=== PATIENT | female | born 2000 | race Caucasian/White ===

== ENCOUNTER 2023-04-19 09:25 | Inpatient (IN) | payer OTHER, SELFPAY ==
[2023-04-19] VITALS (20 sets, daily range): BP systolic 114–161; BP diastolic 63–92; PULSE 79–120; RESP 13–21; TEMP 36.2–37.2; O2SAT 94–100; BMI 32.0
--- OUTSIDE RECORDS SUMMARY | 2023-04-19 10:04 | XMS RPT_ITS | CCD ---
Author Name Unknown Address [address] [place] [address] Organization [facility] Care Team Providers Care Color Buffer Name Role Phone HORTENSIA PAPPAS Consulting Unavailable BONY WASHINGTON DO Attending Unavailable BONY WASHINGTON DO Primary Care Unavailable BONY AWSHINGTON DO Admitting Unavailable PROVIDER, UNKNOWN Consulting Unavailable FAZAL LARA Attending Unavailable FAZAL LARA Primary Care Unavailable FAZAL LARA Admitting Unavailable HORTENSIA PAPPAS Consulting Unavailable PROVIDER, UNKNOWN Consulting Unavailable Unavailable Primary Care Provider Unavailmaximus TRINH, SIRIA Referring Unavailable CARLOS, PARMJIT Attending Unavailable PLOTTS, JOANNE Attending Unavailable TRINH, SIRIA Referring Unavailable PLOTTS, JOANNE Attending Unavailable TRINH, SIRIA Referring Unavailable CARLOS, KARMON Attending Unavailable PLOTTS, JOANNE Referring Unavailable PLOTTS, JOANNE Attending Unavailable PLOTTS, JOANNE Referring Unavailable WISWELL, AURORA Attending Unavailable CARLOS, KARMON Attending Unavailable PLOTTS, JOANNE Attending Unavailable PLOTTS, JOANNE Attending Unavailable PLOTTS, JOANNE Referring Unavailable TRINH, SIRIA Attending Unavailable TRINH, SIRIA Attending Unavailable TRINH, SIRIA Referring Unavailable TRINH, SIRIA Attending Unavailable TRINH, SIRIA Referring Unavailable Allergies Allergy Classification Reported Allergen(s) Allergy Type Date of Onset Reaction(s) Facility (12 sources) peanut allergenic extract; Translations: [PEANUT] Drug Allergy 08-31-2022 Swelling, Vomiting [facility] Work Phone: Medications Completed/Discontinued Medications Medication Drug Class(es) Dates Sig (Normalized) Sig (Original) 160 actuat EPINEPHrine 0.125 mg/actuat metered dose inhaler (9 sources) alpha-Adrenergic Agonist, beta-Adrenergic Agonist, Catecholamine EPINEPHrine 0.125 mg/actuation HFA Inhale 0.125 g as instructed as needed. 0 Active Problems Active Problems Problem Classification Problem Date Documented Da te Episodic/Chronic Other complications of (1 source) Excessive weight gain in , third trimester; Translations: [Edema or excessive weight gain in , without mention of hypertension, antepartum condition or complication] 04-09-2023 Episodic Other complications of (3 sources) Excessive growth affecting management of mother; Translations: [Maternal care for excessive growth, third trimester, not applicable or unspecified] Onset: 03-15-2023 04-09-2023 Episodic Other lower respiratory disease (5 sources) H/O: asthma; Translations: [Personal history of other diseases of the respiratory system] Onset: 02-05-2023 02-05-2023 Episodic Other and delivery including normal (18 sources) Normal ; Translations: [Encounter for supervision of normal first , unspecified trimester] Onset: 09-18-2022 Episodic Other screening for suspected conditions (not mental disorders or infectious disease) (2 sources) Patient encounter status; Translations: [Encounter for screening for malignant neoplasm of cervix] 09-18-2022 Episodic Residual codes; unclassified (1 source) Gestation period, 7 weeks; Translations: [Less than 8 weeks gestation of ] 09-18-2022 Episodic Residual codes; unclassified (1 source) Gestation period, 11 weeks; Translations: [11 weeks gestation of ] 10-16-2022 Episodic Residual codes; unclassified (2 sources) Gestation period, 19 weeks; Translations: [19 weeks gestation of ] 12-11-2022 Episodic Residual codes; unclassified (1 source) Gestation period, 27 weeks; Translations: [27 weeks gestation of ] 02-05-2023 Episodic Residual codes; unclassified (1 source) Gestation period, 30 weeks; Translations: [30 weeks gestation of ] 02-23-2023 Episodic Residual codes; unclassified (1 source) Gestation period, 36 weeks; Translations: [36 weeks gestation of ] 04-09-2023 Episodic Residual codes; unclassified (1 source) Gestation period, 37 weeks; Translations: [37 weeks gestation of ] 04-16-2023 Episodic Residual codes; unclassified (1 source) 30 weeks gestation of ; Translations: [30 weeks gestation of ] Onset: 03-11-2023 Episodic Residual codes; unclassified (1 source) 23 weeks gestation of ; Translations: [23 weeks gestation of ] Onset: 02-05-2023 Episodic Past or Other Problems Problem Classification Problem Date Documented Da te Episodic/Chronic Other complications of (6 sources) Rubella non-immune; Translations: [Supervision of other high risk pregnancies, unspecified trimester] Onset: 10-19-2022 10-19-2022 Episodic Residual codes; unclassified (1 source) 11 weeks gestation of ; Translations: [11 weeks gestation of ] Onset: 10-16-2022 Episodic Residual codes; unclassified (1 source) Less than 8 weeks gestation of ; Translations: [7 weeks gestation of ] Onset: 10-16-2022 Episodic Results Test Name Value Interpretation Reference Range Facil ity Vital Signs Date Time Vital Sign Value Performing Clinician Elyssa litnguyen 04-16-2023 13:44-0500 Diastolic blood pressure 79 mm[Hg] Parmjit Gonzalez MD Work Phone: [facility] 04-16-2023 13:44-0500 Systolic blood pressure 125 mm[Hg] Parmjit Gonzalez MD Work Phone: [facility] 04-16-2023 13:26-0500 Body weight 111.58 kg Parmjit Gonzalez MD Work Phone: [facility] 04-09-2023 14:35-0500 Body weight 112.49 kg Joanne Miller APRN.CNAlex Work Phone: [facility] 04-09-2023 14:35-0500 Diastolic blood pressure 70 mm[Hg] Joanne Miller CARPET TILE LAYER.CNM Work Phone: [facility] 04-09-2023 14:35-0500 Systolic blood pressure 116 mm[Hg] Joanne Miller CARPET TILE LAYER.CNM Work Phone: [facility] 02-23-2023 15:05-0500 Body weight 102.51 kg Siria Trinh APRN.SHAN Work Phone: [facility] 02-23-2023 15:05-0500 Diastolic blood pressure 72 mm[Hg] Siria Trinh APRN.CNM Work Phone: [facility] 02-23-2023 15:05-0500 Systolic blood pressure 120 mm[Hg] Siria Trinh CARPET TILE LAYER.CNM Work Phone: [facility] 02-05-2023 15:09-0500 Body weight 100.25 kg Siria Trinh CARPET TILE LAYER.CNM Work Phone: [facility] 02-05-2023 15:09-0500 Diastolic blood pressure 82 mm[Hg] Siria Trinh CARPET TILE LAYER.CNM Work Phone: [facility] 02-05-2023 15:09-0500 Systolic blood pressure 124 mm[Hg] Siria Trinh CARPET TILE LAYER.CNM Work Phone: [facility] 12-11-2022 13:45-0400 Body weight 90.63 kg Aurora Prince MD Work Phone: [facility] 12-11-2022 13:45-0400 Diastolic blood pressure 76 mm[Hg] Aurora Prince MD Work Phone: [facility] 12-11-2022 13:45-0400 Systolic blood pressure 120 mm[Hg] Aurora Prince MD Work Phone: [facility] 10-16-2022 15:56-0400 Body weight 81.65 kg Parmjit Gonzalez MD Work Phone: [facility] 10-16-2022 15:56-0400 Diastolic blood pressure 68 mm[Hg] Parmjit Gonzalez MD Work Phone: [facility] 10-16-2022 15:56-0400 Systolic blood pressure 118 mm[Hg] Parmjit Gonzalez MD Work Phone: [facility] 09-18-2022 13:07-0400 Body height 188 cm Joanne Edgekalani CARPET TILE LAYER.CNM Work Phone: [facility] 09-18-2022 13:07-0400 Body weight 80.29 kg Joanne Edgekalani CARPET TILE LAYER.CNM Work Phone: [facility] 09-18-2022 13:07-0400 Diastolic blood pressure 72 mm[Hg] Joanne Plotts CARPET TILE LAYER.CNM Work Phone: [facility] 09-18-2022 13:07-040 Systolic blood pressure 122 mm[Hg] Joanne Miller CARPET TILE LAYER.CNM Work Phone: [facility] Encounters Encounter Date Encounter Type Care Provider Facility Start: 04-16-2023 End: 04-16-2023 ambulatory PARMJIT GONZALEZ Facility:[facility] Start: 04-16-2023 End: 04-16-2023 Patient encounter procedure Parmjit Gonzalez MD Work Phone: OB/Gynecology Procedures Date Procedure Procedure Detail Performing Clinician Start: 04-16-2023 URINE OB DIP B/O Parmjit Gonzalez MD Work Phone: Start: 04-09-2023 URINE OB DIP B/O Petty Miller CARPET TILE LAYER.CNM Work Phone: Start: 02-23-2023 URINE OB DIP B/O Dima Trinh CARPET TILE LAYER.CNM Work Phone: Start: 02-05-2023 URINE OB DIP B/O Dima Trinh CARPET TILE LAYER.CNM Work Phone: Start: 12-11-2022 URINE OB DIP B/O Aurora bryant MD Work Phone: Start: 12-11-2022 Us preg uterus after 1st trimest 1/ gestation Joanne Miller APRN.CNM Work Phone: Start: 10-16-2022 Antibody screen SIRIA TRINH Plan of Treatment Date Care Activity Detail Author Start: 09-18-2025 PAP TESTING PAP TESTING [facility] Start: 09-18-2025 Screening for malign ant neoplasm of cervix Pap Testing [facility] Start: 09-19-2023 CHLAMYDIA SCREENING (18-24) CHLAMYDIA SCREENING (18-24) [facility] Start: 09-19-2023 GC (GONORRHEA) SCREE ESMER (18-24) GC (GONORRHEA) SCREENING (18-24) [facility] Start: 09-19-2023 Screening for Chlamy nj trachomatis Chlamydia Screening (18-) [facility] Start: 03-08-2023 Depression Assessment Depression Ass essment [facility] Start: 03-06-2023 RSV Vaccine (1 - Ris k 1-dose series) RSV Vaccine (1 - Risk 1-dose series) [facility] Start: 11-06-2022 Influenza vaccination [facility] Start: 09-18-2022 End: 11-18-2022 CBC panel - Blood by Automated count CBC Lab Routine Encounter for care in first trimester of first 7 weeks gestation of Expected: 09/18/2022, Expires: 11/18/2022 [facility] Work Phone: Payers Date Payer Category Payer Unknown [employer] P[employer] [id number] 2022-Present [phone] [address] [place] [address] PPO [id number] 2022 Unknown [id number] 2000 Unknown [id number] 2000 Unknown [id number] Unknown [id number] Social History Date Type Detail Facility Start: 08-31-2022 [facility] Work Phone: End: 08-10-2018 History of tobacco use Current smoker [facility] Work Phone: End: 08-10-2018 History of tobacco use Cigarette Smoker [facility] Work Phone: Start: 08-31-2022 Tobacco use and exposure Smokeless tobacco non-user [facility] Work Phone: Start: 08-31-2022 End: 04-16-2023 Alcohol intake Ex-drinker (finding) [facility] Start: 08-31-2022 Education 13 [facility] Start: 08-31-2022 Alcohol Comment 1-2 times a month [facility] Start: 08-08-2022 [facility] Start: 2000 Sex Assigned At Not on file [facility] Start: 09-18-2022 End: 04-16-2023 History of Social function [facility] Start: 09-18-2022 End: 04-16-2023 Tobacco use panel [facility] Goals Date Patient Goal Desired Activity /State Personal health goal Clinical Notes 08-31-2022 to 04-16-2023 Quick Notes - Parmjit Gonzalez MD - 04/16/2023 2:03 PM ESTPatient InstructionsPrenatal Quick Notes - Joanne Miller APRN.CN - 04/09/2023 2:59 PM ESTPatient InstructionsPatient Instructions Note Date & Type Note Facility 04-16-2023 Miscellaneous Notes Formattin g of this note might be different from the original. KJ - VB No. LOF No. CTXS No. Movement: present. Other c/o: No. Medication list reviewed. Physical Exam See Flow Sheet Gen: no accute distress, well appearing Abd: soft, nontender, gravid A/P 37w6d Estimated Date of Delivery: 05/01/23 LGA fetus - discussed R/B/A of MOD. Patient wishes to proceed with elective primary section. Pelvic exam shows inadequate pelvis. Borderline BP - denies preE symptoms. Follow up Wednesday for BP check. Labor precautions reviewed, Kick counts reviewed. Parmjit Gonzalez MD documented in this encounter [facility] 04-16-2023 Instructions Africa Maldonado Ma - 04/16/2023 1:27 PM EST SEQUENTIAL SCREENINGS The [facility] offers sequential screenings for women who are interested in screenings for chromosomal abnormalities and certain defects during a . The sequential screen combines ultrasound and blood tests to determine the risk of chromosomal abnormalities, including Down's Syndrome (Trisomy 21) and Trisomy 18, as well as open neural tube defects including spina bifida. Ultrasound examination is performed between 11 weeks and 13 weeks gestational age. Blood tests are drawn after the ultrasound and again later in the between 15 and 21 weeks gestational age. Please let your physician know if you are interested in this testing. It will require an appointment with our microwave technician. This is not an ultrasound performed by a physician in our office during a routine visit. SIGNS AND SYMPTOMS OF LABOR 1. Contractions every 10 minutes or more often 2. Clear, pink, or brownish fluid (water) leaking from vagina 3. Feeling that baby is pushing down, pressure 4. Low, dull backache 5. Cramps that feel like a period 6. Cramps with or without diarrhea If you notice any of the above symptoms, contact our office at [phone] and ask to speak with a nurse. After hours, you can call doctors registry at [phone] OR call [facility] at [phone] and ask to have the doctor loom control chain builder paged. If you consider this an emergency, dial 4-1 or go to your nearest emergency department. NEED HELP? Are you dealing with a violent or abusive relationship? Are you a victim of rape or sexual assult? Call [facility] ([place]) 24 hour Crisis Hotline: 755.957.4541 or 323-860-4640. MANUAL Your Guide to a Healthy manual is now on-line. Visit [email or web address] to download your free copy documented in this encounter [facility] 04-09-2023 Miscellaneous Notes Formattin g of this note might be different from the original. Waylon Levy is a 23 year old female who presents at 36w6d for a routine visit. Just completed growth US- EFW 96%, EZEKIEL 24. Discussed results with patient and . Would like final growth US in 4 weeks and would like to discuss delivery options. Stated may be open to a primary section due to size of baby. Will discuss after final US. Good movement. Occasional contractions. Reviewed timing of contractions. Denies headache, visual changes, chest pain, shortness of breath, vaginal bleeding, leakage of fluid, or dysuria. Feeling well, no complaints. Size equal to dates. 72 lbs TWG. ASSESSMENT/PLAN: 1. Encounter for supervision of normal first in third trimester - ICD9: V22.0, ICD10: Z34.03 (primary diagnosis) 2. Excessive weight gain in , third trimester - ICD9: 646.13, 783.1, ICD10: O26.03 3. 36 weeks gestation of - ICD9: V22.2, ICD10: Z3A.36 4. Macrosomia of fetus affecting management of mother in third trimester, single or unspecified fetus - ICD9: 656.63, ICD10: O36.63X0 - URINE OB DIP B/O - ROUTINE, GROUP B STREP PCR - EFW 96%, EZEKIEL 24 - PTL precautions reviewed. RTC in 1 week Joanne Miller APRN.CNM documented in this encounter [facility] 04-09-2023 Instructions Waylon Perez Cma - 04/09/2023 2:35 PM EST SEQUENTIAL SCREENINGS The [facility] offers sequential screenings for women who are interested in screenings for chromosomal abnormalities and certain defects during a . The sequential screen combines ultrasound and blood tests to determine the risk of chromosomal abnormalities, including Down's Syndrome (Trisomy 21) and Trisomy 18, as well as open neural tube defects including spina bifida. Ultrasound examination is performed between 11 weeks and 13 weeks gestational age. Blood tests are drawn after the ultrasound and again later in the between 15 and 21 weeks gestational age. Please let your physician know if you are interested in this testing. It will require an appointment with our microwave technician. This is not an ultrasound performed by a physician in our office during a routine visit. SIGNS AND SYMPTOMS OF LABOR 1. Contractions every 10 minutes or more often 2. Clear, pink, or brownish fluid (water) leaking from vagina 3. Feeling that baby is pushing down, pressure 4. Low, dull backache 5. Cramps that feel like a period 6. Cramps with or without diarrhea If you notice any of the above symptoms, contact our office at [phone] and ask to speak with a nurse. After hours, you can call doctors registry at [phone] OR call [facility] at [phone] and ask to have the doctor loom control chain builder paged. If you consider this an emergency, dial 9-1-1 or go to your nearest emergency department. NEED HELP? Are you dealing with a violent or abusive relationship? Are you a victim of rape or sexual assult? Call [facility] ([place]) 24 hour Crisis Hotline: 963.647.1290 or 615-774-4664. MANUAL Your Guide to a Healthy manual is now on-line. Visit [email or web address] to download your free copy documented in this encounter [facility] 02-23-2023 Miscellaneous Notes Formattin g of this note might be different from the original. DONY-S: Waylon Levy is a 22 year old female who presents at 30w3d with KINJAL:05/01/2023, by Last Menstrual Period for a routine visit. Good FM. Denies headache, visual changes, chest pain, shortness of breath, vaginal bleeding, leakage of fluid, or dysuria. Feeling well, no complaints. O: See flow sheet Gen: No apparent distress Abd: Gravid, nontender ASSESSMENT/PLAN: 1. Encounter for supervision of normal first in third trimester 2. 30 weeks gestation of P: 1) PTL precautions reviewed and when to call 2) RTO in 2 weeks 3) Growth US next visit for excessive weight gain, 50 lb 4) RSV vaccine, discusses, declines. 5) Reveiwed plan will possible want epidural or IV pain management. 6) Reviewed 1hr GCT and CBC, normal. Siria Trinh APRN.CNM documented in this encounter [facility] 02-23-2023 Instructions Waylon Perez Cma - 02/23/2023 3:05 PM EST SEQUENTIAL SCREENINGS The [facility] offers sequential screenings for women who are interested in screenings for chromosomal abnormalities and certain defects during a . The sequential screen combines ultrasound and blood tests to determine the risk of chromosomal abnormalities, including Down's Syndrome (Trisomy 21) and Trisomy 18, as well as open neural tube defects including spina bifida. Ultrasound examination is performed between 11 weeks and 13 weeks gestational age. Blood tests are drawn after the ultrasound and again later in the between 15 and 21 weeks gestational age. Please let your physician know if you are interested in this testing. It will require an appointment with our microwave technician. This is not an ultrasound performed by a physician in our office during a routine visit. SIGNS AND SYMPTOMS OF LABOR 1. Contractions every 10 minutes or more often 2. Clear, pink, or brownish fluid (water) leaking from vagina 3. Feeling that baby is pushing down, pressure 4. Low, dull backache 5. Cramps that feel like a period 6. Cramps with or without diarrhea If you notice any of the above symptoms, contact our office at [phone] and ask to speak with a nurse. After hours, you can call doctors registry at [phone] OR call [facility] at [phone] and ask to have the doctor loom control chain builder paged. If you consider this an emergency, dial 5-0-1 or go to your nearest emergency department. NEED HELP? Are you dealing with a violent or abusive relationship? Are you a victim of rape or sexual assult? Call [facility] ([place]) 24 hour Crisis Hotline: 594.378.8157 or 579-509-1579. MANUAL Your Guide to a Healthy manual is now on-line. Visit [email or web address] to download your free copy documented in this encounter [facility] 02-05-2023 Miscellaneous Notes Formattin g of this note might be different from the original. DONY-S: Waylon Levy is a 22 year old female who presents at 27w6d with KINJAL:05/01/2023, by Last Menstrual Period for a routine visit. Denies headache, visual changes, chest pain, shortness of breath, vaginal bleeding, leakage of fluid, or dysuria. Feeling well, no complaints. Has not had episode of Asthma since first trimester, will bring inhaler with her in labor O: See flow sheet Gen: No apparent distress Abd: Gravid, nontender S=D, TWG 45 lb ASSESSMENT/PLAN: 1. 27 weeks gestation of 2. Encounter for supervision of normal first in third trimester P: - 1 hour GCT, CBC, and RPR today - Blood Type O+ - TDAP offered, declined - LARC form reviewed and signed. Patient declines -Handout re: RSV vaccine given for review-will offer at 32 wk - Depression screen negative - Opioid screen negative -Discussed healthy food choices and increase water intake - plan form discussed and given to patient. 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 I have re-performed the HPI, Physical Examination, Assessment and Plan. Siria Trinh APRN.CNM documented in this encounter [facility] 02-05-2023 Instructions Melanie Lind Ma 02/05/2023 3:07 PM EST SEQUENTIAL SCREENINGS The [facility] offers sequential screenings for women who are interested in screenings for chromosomal abnormalities and certain defects during a . The sequential screen combines ultrasound and blood tests to determine the risk of chromosomal abnormalities, including Down's Syndrome (Trisomy 21) and Trisomy 18, as well as open neural tube defects including spina bifida. Ultrasound examination is performed between 11 weeks and 13 weeks gestational age. Blood tests are drawn after the ultrasound and again later in the between 15 and 21 weeks gestational age. Please let your physician know if you are interested in this testing. It will require an appointment with our microwave technician. This is not an ultrasound performed by a physician in our office during a routine visit. SIGNS AND SYMPTOMS OF LABOR 1. Contractions every 10 minutes or more often 2. Clear, pink, or brownish fluid (water) leaking from vagina 3. Feeling that baby is pushing down, pressure 4. Low, dull backache 5. Cramps that feel like a period 6. Cramps with or without diarrhea If you notice any of the above symptoms, contact our office at [phone] and ask to speak with a nurse. After hours, you can call doctors registry at [phone] OR call [facility] at [phone] and ask to have the doctor loom control chain builder paged. If you consider this an emergency, dial 9-1-1 or go to your nearest emergency department. NEED HELP? Are you dealing with a violent or abusive relationship? Are you a victim of rape or sexual assult? Call [facility] ([place]) 24 hour Crisis Hotline: 947.801.4523 or 205-424-3320. MANUAL Your Guide to a Healthy manual is now on-line. Visit [email or web address] to download your free copy documented in this encounter [facility] 12-11-2022 Miscellaneous Notes Formattin g of this note might be different from the original. SW- No pain, vb, lof. No FM yet. Anatomy US today and final report reviewed. RTO 4 wks. Aurora Prince DO documented in this encounter [facility] 12-11-2022 Instructions Rosa Aguilar MA - 12/11/2022 1:36 PM EDT SEQUENTIAL SCREENINGS The [facility] offers sequential screenings for women who are interested in screenings for chromosomal abnormalities and certain defects during a . The sequential screen combines ultrasound and blood tests to determine the risk of chromosomal abnormalities, including Down's Syndrome (Trisomy 21) and Trisomy 18, as well as open neural tube defects including spina bifida. Ultrasound examination is performed between 11 weeks and 13 weeks gestational age. Blood tests are drawn after the ultrasound and again later in the between 15 and 21 weeks gestational age. Please let your physician know if you are interested in this testing. It will require an appointment with our microwave technician. This is not an ultrasound performed by a physician in our office during a routine visit. SIGNS AND SYMPTOMS OF LABOR 1. Contractions every 10 minutes or more often 2. Clear, pink, or brownish fluid (water) leaking from vagina 3. Feeling that baby is pushing down, pressure 4. Low, dull backache 5. Cramps that feel like a period 6. Cramps with or without diarrhea If you notice any of the above symptoms, contact our office at [phone] and ask to speak with a nurse. After hours, you can call doctors registry at [phone] OR call [facility] at [phone] and ask to have the doctor loom control chain builder paged. If you consider this an emergency, dial 2-4-9 or go to your nearest emergency department. NEED HELP? Are you dealing with a violent or abusive relationship? Are you a victim of rape or sexual assult? Call [facility] ([place]) 24 hour Crisis Hotline: 744.947.6600 or 162-472-6691. MANUAL Your Guide to a Healthy manual is now on-line. Visit [email or web address] to download your free copy documented in this encounter [facility] 10-16-2022 Miscellaneous Notes Formattin g of this note might be different from the original. KJ - No VB/LOF/ctxs. She reports a red rash under her breasts. PE: Breast - circumscribed erythema under bilateral breasts A&P: Declines aneuploidy screening Skin erythema - suspect yeast &/or irritant dermatitis. Rx kenalog & nystatin ointments given. Advised on avoid underwire bras. Parmjit Gonzalez MD documented in this encounter [facility] 10-16-2022 Instructions Aurora Beatty RN - 10/16/2022 8:47 AM EDT SEQUENTIAL SCREENINGS The [facility] offers sequential screenings for women who are interested in screenings for chromosomal abnormalities and certain defects during a . The sequential screen combines ultrasound and blood tests to determine the risk of chromosomal abnormalities, including Down's Syndrome (Trisomy 21) and Trisomy 18, as well as open neural tube defects including spina bifida. Ultrasound examination is performed between 11 weeks and 13 weeks gestational age. Blood tests are drawn after the ultrasound and again later in the between 15 and 21 weeks gestational age. Please let your physician know if you are interested in this testing. It will require an appointment with our microwave technician. This is not an ultrasound performed by a physician in our office during a routine visit. SIGNS AND SYMPTOMS OF LABOR 1. Contractions every 10 minutes or more often 2. Clear, pink, or brownish fluid (water) leaking from vagina 3. Feeling that baby is pushing down, pressure 4. Low, dull backache 5. Cramps that feel like a period 6. Cramps with or without diarrhea If you notice any of the above symptoms, contact our office at [phone] and ask to speak with a nurse. After hours, you can call doctors registry at [phone] OR call [facility] at [phone] and ask to have the doctor loom control chain builder paged. If you consider this an emergency, dial 9-3 or go to your nearest emergency department. NEED HELP? Are you dealing with a violent or abusive relationship? Are you a victim of rape or sexual assult? Call [facility] ([place]) 24 hour Crisis Hotline: 490.643.6605 or 940-746-6317. MANUAL Your Guide to a Healthy manual is now on-line. Visit [email or web address] to download your free copy documented in this encounter [facility] 09-18-2022 Note HNO ID: [id number] Author: Joanne Miller APRN.CNM Service: ? Author Type: Qc Scientist Type: Progress Notes Filed: 09/18/2022 2:09 PM Note Text: OB point of care ultrasound was performed. See imaging tab for details. Joanne Miller APRN.CNM [facility] 09-18-2022 Note HNO ID: [id number] Author: Joanne Miller APRN.CNM Service: ? Author Type: Qc Scientist Type: Progress Notes Filed: 09/18/2022 1:45 PM Note Text: INITIAL OB ASSESSMENT OB Provider: Joanne Miller APRN CNM HPI: Waylon is a 22 year old White here to establish Obstetrical Care. Patient's last menstrual period was 07/25/2022 (exact date). from OB Dating Form. Cycles regular was planned Complaints: None OB History T0 L0 SAB0 IAB0 Ectopic0 Multiple0 Live Births0 Patient's Risk Screening for delivery: Have you had a prior ho between 20w and 36w6d?: No MEDICAL/PSYCHOSOCIAL HISTORY: History of hemorrhage or bleeding concerns: No Thyroid Disease: No History of chronic hypertension: No History of pre-existing diabetes: No No results found for: ABORHD BMI 22.73 kg/(m2) History of abnormal pap: No Prior treatment for cervical dysplasia: none. History of STDs: None Tobacco use: No Caffeine use: No Drug use: No Alcohol use: No Multivitamin with Folic acid: Yes Episcopalian or heritage: No Would refuse blood transfusion if medically necessary: No Are you currently employed? Yes, Occupation: [employer] Do you have any history of depression, anxiety, PTSD, eating disorders or other mood problems: No Do you have any safety concerns or history of traumatic events that you would like to discuss with your provider: No How often does this describe you? I don't have enough money to pay my bills: Never Within the past 12 months, have you worried that your food would run out before you had money to buy more: Never In the past 12 months, has lack of reliable transportation kept you from going to medical appointments or work, or from keeping things needed for daily living: Never In the past 12 months, have you had any concerns about having a place to live, or about the condition or quality of your housing: Never Are there any cultural or spiritual needs we should be aware of: No Depression: denies symptoms of depression. OB Depression and Anxiety Screening- This Encounter (since 09/17/2022) Over the past 2 weeks have you felt down, depressed, or hopeless? Negative Over the past two weeks, have you felt little interest or pleasure in doing things?? Negative Feeling nervous, anxious or on edge 1-Several days Not being able to stop or control worrying 0-Not al all Anxiety Pre-Screening Total (If >/= 3 additional questions will be reviewed) 1 GENETIC SCREENING: Partner present: Yes Patient verbalized knowledge of partner family health history: Yes Do you or your partner have any personal or family history of defects not previously discussed: No Do you have history of a complicated by anomaly, genetic condition, or demise: No Marital Status:Engaged Partner: Name: Luigi Age: 21 Occupation: [employer] Gender: Male History of STDs: None PAST MEDICAL HISTORY Diagnosis Date Asthma Uses OTC inhaler-no major asthma attacks in 10 years per patient No past surgical history on file. Current Outpatient Medications Medication Sig Dispense Refill EPINEPHrine 0.125 mg/actuation HFA Inhale 0.125 g as instructed as needed. multivitamin (CLASSIC ) 28 mg iron- 800 mcg tab(s) Take 1 tablet by mouth once daily. DHA and Folic acid included No current facility-administered medications for this visit. Allergies As of Date: 09/18/2022 Allergen Noted Reaction PEANUT 08/31/2022 Swelling and Vomiting Fully Assessed 09/18/2022 Does patient have penicillin allergy: No REVIEW OF SYSTEMS: GENERAL: Negative for: Fever or Chills and Positive for: Fatigue HEENT: Negative for: Headache, Impaired Vision, Ringing in Ears, Nosebleeds NECK: Negative for: Swelling, Pain, Stiffness RESPIRATORY: Negative for: Cough, Shortness of breath, Wheezing GASTROINTESTINAL: Negative for: Heartburn, Constipation, Diarrhea, Blood in stool, Vomiting MUSCULOSKELETAL: Negative for: Muscle or joint pain, stiffness, Joint swelling NEUROLOGIC/PSYCHIATRIC: Negative for: Weakness, Paralysis, Numbness, Tingling, Tremor, Anxiety, Depression, Memory loss SKIN: Negative for: Rash, Itching GENITOURINARY: Negative for: vaginal itching, vaginal discharge, hematuria or dysuria and Positive for: urinary frequency PHYSICAL EXAM: BP 122/72 Ht 6' 2 (1.88m) Wt 177 lb (80.3kg) LMP 07/25/2022 BMI 22.72 kg/(m2). GENERAL: pleasant in no apparent distress DERMATOLOGY: Normal, without lesions, non-icteric, and non-hirsute NECK: Supple and full range of motion CHEST: Normal inspiratory effort BREAST: soft, non-tender, symmetric, no dominant mass, normal nipple-areolar complex, no lymphadenopathy, and no nipple discharge ABDOMEN: soft, non-tender, and no masses NEURO: alert and oriented x3,exam grossly non-focal PELVIS: External gen (more content not included)... [facility] 09-18-2022 History of Presen t illness Narrative OB point of care ultrasound was performed. See imaging tab for details. Joanne Miller APRN.BHASKARM documented in this encounter [facility] 09-18-2022 Miscellaneous Notes Formattin g of this note might be different from the original. Patient seen for NOB. See progress note. Joanne Miller APRN.CNM documented in this encounter [facility] 09-18-2022 History of Presen t illness Narrative INITIAL OB ASSESSMENT OB Provider: Joanne Miller APRN CNM HPI: Waylon is a 22 year old White here to establish Obstetrical Care. Patient's last menstrual period was 07/25/2022 (exact date). from OB Dating Form. Cycles regular was planned Complaints: None OB History T0 L0 SAB0 IAB0 Ectopic0 Multiple0 Live Births0 Patient's Risk Screening for delivery: Have you had a prior ho between 20w and 36w6d?: No MEDICAL/PSYCHOSOCIAL HISTORY: History of hemorrhage or bleeding concerns: No Thyroid Disease: No History of chronic hypertension: No History of pre-existing diabetes: No No results found for: ABORHD BMI 22.73 kg/(m^2) History of abnormal pap: No Prior treatment for cervical dysplasia: none. History of STDs: None Tobacco use: No Caffeine use: No Drug use: No Alcohol use: No Multivitamin with Folic acid: Yes Episcopalian or heritage: No Would refuse blood transfusion if medically necessary: No Are you currently employed? Yes, Occupation: [employer] Do you have any history of depression, anxiety, PTSD, eating disorders or other mood problems: No Do you have any safety concerns or history of traumatic events that you would like to discuss with your provider: No How often does this describe you? I don't have enough money to pay my bills: Never Within the past 12 months, have you worried that your food would run out before you had money to buy more: Never In the past 12 months, has lack of reliable transportation kept you from going to medical appointments or work, or from keeping things needed for daily living: Never In the past 12 months, have you had any concerns about having a place to live, or about the condition or quality of your housing: Never Are there any cultural or spiritual needs we should be aware of: No Depression: denies symptoms of depression. OB Depression and Anxiety Screening- This Encounter (since 09/17/2022) Over the past 2 weeks have you felt down, depressed, or hopeless? Negative Over the past two weeks, have you felt little interest or pleasure in doing things? Negative Feeling nervous, anxious or on edge 1-Several days Not being able to stop or control worrying 0-Not al all Anxiety Pre-Screening Total (If >/= 3 additional questions will be reviewed) 1 GENETIC SCREENING: Partner present: Yes Patient verbalized knowledge of partner family health history: Yes Do you or your partner have any personal or family history of defects not previously discussed: No Do you have history of a complicated by anomaly, genetic condition, or demise: No Marital Status:Engaged Partner: Name: Luigi Age: 21 Occupation: Excavating Gender: Male History of STDs: None PAST MEDICAL HISTORY Diagnosis Date Asthma Uses OTC inhaler-no major asthma attacks in 10 years per patient No past surgical history on file. Current Outpatient Medications Medication Sig Dispense Refill EPINEPHrine 0.125 mg/actuation HFA Inhale 0.125 g as instructed as needed. multivitamin (CLASSIC ) 28 mg iron- 800 mcg tab(s) Take 1 tablet by mouth once daily. DHA and Folic acid included No current facility-administered medications for this visit. Allergies As of Date: 09/18/2022 Allergen Noted Reaction PEANUT 08/31/2022 Swelling and Vomiting Fully Assessed 09/18/2022 Does patient have penicillin allergy: No REVIEW OF SYSTEMS: GENERAL: Negative for: Fever or Chills and Positive for: Fatigue HEENT: Negative for: Headache, Impaired Vision, Ringing in Ears, Nosebleeds NECK: Negative for: Swelling, Pain, Stiffness RESPIRATORY: Negative for: Cough, Shortness of breath, Wheezing GASTROINTESTINAL: Negative for: Heartburn, Constipation, Diarrhea, Blood in stool, Vomiting MUSCULOSKELETAL: Negative for: Muscle or joint pain, stiffness, Joint swelling NEUROLOGIC/PSYCHIATRIC: Negative for: Weakness, Paralysis, Numbness, Tingling, Tremor, Anxiety, Depression, Memory loss SKIN: Negative for: Rash, Itching GENITOURINARY: Negative for: vaginal itching, vaginal discharge, hematuria or dysuria and Positive for: urinary frequency PHYSICAL EXAM: BP 122/72 Ht 6' 2 (1.88m) Wt 177 lb (80.3kg) LMP 07/25/2022 BMI 22.72 kg/(m^2). GENERAL: pleasant in no apparent distress DERMATOLOGY: Normal, without lesions, non-icteric, and non-hirsute NECK: Supple and full range of motion CHEST: Normal inspiratory effort BREAST: soft, non-tender, symmetric, no dominant mass, normal nipple-areolar complex, no lymphadenopathy, and no nipple discharge ABDOMEN: soft, non-tender, and no masses NEURO: alert and oriented x3,exam grossly non-focal PELVIS: External genitalia normal without lesions. Perineal body intact. No vaginal or cervical lesions. Cervix closed. Uterus 7 week size. No adnexal masses or tenderness. Clinical Pelvimetry: Pelvimetry clinically assessed as adequate Limited OB ultrasound exam: single intrauterine , positive cardiac activity, and crown-rump length 7.3 OB Risk Screening: Completed, no positive findings documented. ASSESSMENT: 22 year old at 7w6d wks gestational age PLAN: 1) Patient oriented to practice. Discussed nutrition, folic acid supplementation, dietary guidelines, exercise, smoking, alcohol, caffeine, and drug use. Discussed routine OB labs including STD/HIV. Discussed how to access Your guide to a health and the Suction Drum Drier Operator. Discussed aneuploidy and carrier screening. Regarding aneuploidy screening, nuchal translucency/first trimester early anatomy ultrasound and NIPT were discussed. Regarding carrier screening, the myriad screen was discussed. The risks/benefits and limitations of NIPT/aneuploidy screening were reviewed including the potential for false negative and false positive results. We discussed the availability of professional-society guided carrier screening and reviewed the conditions screened and limitations of screening. The availability of genetic counseling was reviewed. Information on aneuploidy/carrier screening was provided. The patient chooses: Aneuploidy screening: declines screening and Carrier screening: Declines Follow up in 4 weeks or sooner prn. Joanen Miller APRN.CNM documented in this encounter [facility] 09-18-2022 Waylon Gupta Cma - 09/18/2022 12:52 PM EDT Please select the following link to access the [facility] Your Guide to a Healthy . [email or web address] documented in this encounter [facility] 08-31-2022 Miscellaneous Notes Formattin g of this note might be different from the original. 08/31/2022 Patient here with father of the baby. They are engaged to be . Entire visit was done with [facility]. Patient desires aneuploidy screening. Contact information for [facility] given to patient to check on insurance coverage. Patient considering genetic carrier screening testing. Contact information for [facility] lab given to patient to check on insurance coverage.Sarahy Faria RN documented in this encounter [facility] Diagnosis Encounter for care in first trimester of first - Primary 7 weeks gestation of state, incidental Pap smear for cervical cancer screening Screening for malignant neoplasm of the cervix [facility]* Diagnosis with uncertain dates in first trimester- Primary [facility] Diagnosis 11 weeks gestation of - Primary state, incidental Supervision of normal first , antepartum [facility] Diagnosis 19 weeks gestation of - Primary state, incidental Encounter for care in second trimester of first [facility] Diagnosis Encounter for anatomic survey- Primary Encounter for care in first trimester of first 19 weeks gestation of state, incidental [facility] Diagnosis 27 weeks gestation of - Primary state, incidental Encounter for supervision of normal first in second trimester Supervision of normal first History of asthma Personal history of other diseases of respiratory system Encounter for supervision of normal first in third trimester Supervision of normal first [facility] Diagnosis Encounter for supervision of normal first in third trimester- Primary Supervision of normal first 30 weeks gestation of state, incidental [facility] Diagnosis Encounter for supervision of normal first in third trimester- Primary Supervision of normal first Excessive weight gain in , third trimester 36 weeks gestation of state, incidental Macrosomia of fetus affecting management of mother in third trimester, single or unspecified fetus [facility] Diagnosis 37 weeks gestation of - Primary state, incidental documented in this encounter [facility] for referral (narrative)* Diagnostic Procedure Only (Routine) - Pending Review Specialty Diagnoses / Procedures Referred By Maureen gamble Referred To Contact [facility] Diagnoses Encounter for care in first trimester of first 7 weeks gestation of Procedures OBSTETRIC ULTRASOUND WHI US PREG UTERUS AFTER 1ST TRIMEST 1/ GESTATION Joanne Miller APRN.CNM [address] [place] [address] [facility] [place] [address] Referral ID Status Reason Start Date Expiration Date Visits Requested Visits Authorized [id number] Pending Review Auto-Generat ed Referral 09/18/2022 09/18/2023 1 1 [facility] for referral (narrative)* Diagnostic Procedure Only (Routine) - Authorized Specialty Diagnoses / Procedures Referred By Maureen gamble Referred To [facility] Diagnoses 30 weeks gestation of Procedures OBSTETRIC ULTRASOUND WHI US PREG UTERUS AFTER 1ST TRIMEST GESTATION Siria Trinh APRN.CNM [address] [place] [address] [facility] [address] [place] [address] Referral ID Status Reason Start Date Expiration Date Visits Requested Visits Authorized [id number] Authorized Auto-Generat ed Referral 3 02/23/2024 5 1 [facility] Summary Purpose Family History No Family History Records FoundNo Family History Records FoundNo Family History Records Found Advance Directives No Advanced Directives Records FoundNo Advanced Directives Records FoundNo Advanced Directives Records Found Health Concerns Problem Noted Date Diagnosed Date [facility] - [facility] 09/18/2022 Education - [place] 09/18/2022 Problem Noted Date Diagnosed Date [facility] - [facility] 09/18/2022 Education - [place] 09/18/2022 Problem Noted Date Diagnosed Date [facility] - [facility] 09/18/2022 Education - [place] 09/18/2022 Problem Noted Date Diagnosed Date [facility] - [facility] 09/18/2022 Education - [place] 09/18/2022 Problem Noted Date Diagnosed Date [facility] - [facility] 09/18/2022 Education - [place] 09/18/2022 Problem Noted Date Diagnosed Date [facility] - [facility] 09/18/2022 Education - [place] 09/18/2022 Problem Noted Date Diagnosed Date [facility] - [facility] 09/18/2022 Education - [place] 09/18/2022 Problem Noted Date Diagnosed Date [facility] - [facility] 09/18/2022 Education - [place] 09/18/2022 Additional Source Comments INFORMATION SOURCE (unrecogn ized section and content) DATE CREATED AUTHOR AUTHOR'S ORGANIZ ATION 02/04/2020 [facility] DATE CREATED AUTHOR AUTHOR'S ORGANIZ ATION 04/18/2023 [facility] Source Comments (unrecognize d section and content) In the event this informatio n is protected by the Federal Confidentiality of Alcohol and Drug Abuse Patient Records regulations: The Federal rules restrict any use of the information to criminally investigate or prosecute any alcohol or drug abuse patient.[facility] the event this information is protected by the Federal Confidentiality of Alcohol and Drug Abuse Patient Records regulations: The Federal rules restrict any use of the information to criminally investigate or prosecute any alcohol or drug abuse patient.[facility] the event this information is protected by the Federal Confidentiality of Alcohol and Drug Abuse Patient Records regulations: The Federal rules restrict any use of the information to criminally investigate or prosecute any alcohol or drug abuse patient.[facility] the event this information is protected by the Federal Confidentiality of Alcohol and Drug Abuse Patient Records regulations: The Federal rules restrict any use of the information to criminally investigate or prosecute any alcohol or drug abuse patient.[facility] the event this information is protected by the Federal Confidentiality of Alcohol and Drug Abuse Patient Records regulations: The Federal rules restrict any use of the information to criminally investigate or prosecute any alcohol or drug abuse patient.[facility] the event this information is protected by the Federal Confidentiality of Alcohol and Drug Abuse Patient Records regulations: The Federal rules restrict any use of the information to criminally investigate or prosecute any alcohol or drug abuse patient.[facility] the event this information is protected by the Federal Confidentiality of Alcohol and Drug Abuse Patient Records regulations: The Federal rules restrict any use of the information to criminally investigate or prosecute any alcohol or drug abuse patient.[facility] the event this information is protected by the Federal Confidentiality of Alcohol and Drug Abuse Patient Records regulations: The Federal rules restrict any use of the information to criminally investigate or prosecute any alcohol or drug abuse patient.[facility] the event this information is protected by the Federal Confidentiality of Alcohol and Drug Abuse Patient Records regulations: The Federal rules restrict any use of the information to criminally investigate or prosecute any alcohol or drug abuse patient.[facility] the event this information is protected by the Federal Confidentiality of Alcohol and Drug Abuse Patient Records regulations: The Federal rules restrict any use of the information to criminally investigate or prosecute any alcohol or drug abuse patient.[facility] the event this information is protected by the Federal Confidentiality of Alcohol and Drug Abuse Patient Records regulations: The Federal rules restrict any use of the information to criminally investigate or prosecute any alcohol or drug abuse patient.[facility] Reason for Visit (unrecogniz ed section and content) Specialty Diagnoses / Procedures Referred By Contac t Referred To Contact [employer] Diagnoses Follow-up examination PNOB Procedures OFFICE/OUTPATIENT ESTABLISHED MOD MDM 30-39 MIN [facility] NURSE Self Beac, Injection Nurse Conference Center Coordinator [facility] [address] [place] [address] Referral ID Status Reason Start Date Expiration Date Visits Re quested Visits Authorized [id number] Closed 08/31/2022 03/07/2023 1 1 Specialty Diagnoses / Procedures Referred By Contac t Referred To Contact [employer] Diagnoses Follow-up exam New OB Procedures OFFICE/OUTPATIENT NEW HIGH MDM 60-74 MINUTES NEW I OB 1ST EXAM Self Joanne Miller APRN.CNM [address] [place] [address] Referral ID Status Reason Start Date Expiration Date Visits Re quested Visits Authorized [id number] Closed 09/18/2022 03/07/2023 1 1 Specialty Diagnoses / Procedures Referred By Contac t Referred To Contact [employer] Diagnoses READ Procedures US PREG UTERUS AFTER 1ST TRIMEST GESTATION OB ULTRASOUND POC Joanne Miller APRN.CNM [address] [place] [address] Joanne Miller APRN.BHASKARM [address] [place] [address] Referral ID Status Reason Start Date Expiration Date Visits Re quested Visits Authorized [id number] Closed 09/18/2022 03/07/2023 1 1 Reason Onset Date Comments Care 10/16/2022 Specialty Diagnoses / Procedures Referred By Contac t Referred To Contact [employer] Diagnoses Encounter for other specified special examinations ob Procedures OFFICE/OUTPATIENT ESTABLISHED MOD MDM 30-39 MIN EST WHI OB Self Parmjit Gonzalez MD [address] [place] [address] Referral ID Status Reason Start Date Expiration Date Visits Re quested Visits Authorized [id number] Closed 10/16/2022 03/07/2023 1 1 Reason Onset Date Comments Care 12/11/2022 Specialty Diagnoses / Procedures Referred By Contac t Referred To Contact [employer] Diagnoses Follow-up examination ob Procedures OFFICE/OUTPATIENT ESTABLISHED HIGH MDM 40-54 MIN EST WHI OB Self Aurora Prince MD [address] [place] [address] Referral ID Status Reason Start Date Expiration Date Visits Re quested Visits Authorized [id number] Closed 12/11/2022 03/07/2023 1 1 Reason Comments US Specialty Diagnoses / Procedures Referred By Contac t Referred To Contact [facility] Diagnoses Encounter for care in first trimester of first 7 weeks gestation of Procedures OBSTETRIC ULTRASOUND WHI US PREG UTERUS AFTER 1ST TRIMEST GESTATION Joanne Miller APRN.SHAN [address] [place] [address] [facility] [address] [place] [address] Referral ID Status Reason Start Date Expiration Date Visits Requested Visits Authorized [id number] Authorized Auto-Generat ed Referral 11/25/2022 03/07/2023 20 20 Reason Onset Date Comments Care 02/05/2023 Reason Onset Date Comments Care 02/23/2023 Reason Onset Date Comments Care 04/09/2023 Reason Onset Date Comments Care 04/16/2023 FOR RECORDS PERTAINING TO PATIENTS WHO ARE OR HAVE BEEN ENROLLED IN A CHEMICAL DEPENDENCY/SUBSTANCEABUSE PROGRAM, SOME INFORMATION MAY BE OMITTED. This clinical summary was aggregated from multiple sources. Caution should be exercised in using it in the provision of clinical care. This summary normalizes information from multiple sources, and as a consequence, information in this document may materially change the coding, format and clinical context of patient data. In addition, data may be omitted in some cases. CLINICAL DECISIONS SHOULD BE BASED ON THE PRIMARY CLINICAL RECORDS. [facility] [employer] provides no warranty or guarantee of the accuracy or completeness of information in this document.
[2023-04-19] MEDS: Lactated Ringers 1,000 ML 999 ML IV (10:05)
--- OUTSIDE RECORDS SUMMARY | 2023-04-19 10:06 | XMS RPT_ITS | CCD ---
Author Name Unknown Address [address] [place] [address] Organization [facility] Care Team Providers Care Mental Health Program Manager Name Role Phone HORTENSIA PAPPAS Consulting Unavailable BONY WASHINGTON DO Attending Unavailable BONY WASHINGTON DO Primary Care Unavailable BONY WASHINGTON DO Admitting Unavailable PROVIDER, UNKNOWN Consulting Unavailable [...] Translations: [PEANUT] Drug Allergy 08-31-2022 Swelling, Vomiting [facility] Work Phone: Medications Completed/Discontinued Medications Medication [...] 79 mm[Hg] Parmjit Gonzalez MD Work Phone: [facility] 04-16-2023 13:44-0500 Systolic blood pressure 125 mm[Hg] Parmjit Gonzalez MD Work Phone: [facility] 04-16-2023 13:26-0500 Body weight 111.58 kg Parmjit Gonzalez MD Work Phone: [facility] 04-09-2023 14:35-0500 Body weight 112.49 kg Joanne Miller APRN.CNAlex Work Phone: [facility] 04-09-2023 14:35-0500 Diastolic blood pressure 70 mm[Hg] Joanne Miller NAPPER TENDER.CNM Work Phone: [facility] 04-09-2023 14:35-0500 Systolic blood pressure 116 mm[Hg] Joanne Miller NAPPER TENDER.CNM Work Phone: [facility] 02-23-2023 15:05-0500 Body weight 102.51 kg Siria Trinh APRN.SHAN Work Phone: [facility] 02-23-2023 15:05-0500 Diastolic blood pressure 72 mm[Hg] Siria Trinh APRN.CNM Work Phone: [facility] 02-23-2023 15:05-0500 Systolic blood pressure 120 mm[Hg] Siria Trinh NAPPER TENDER.CNM Work Phone: [facility] 02-05-2023 15:09-0500 Body weight 100.25 kg Siria Trinh NAPPER TENDER.CNM Work Phone: [facility] 02-05-2023 15:09-0500 Diastolic blood pressure 82 mm[Hg] Siria Trinh NAPPER TENDER.CNM Work Phone: [facility] 02-05-2023 15:09-0500 Systolic blood pressure 124 mm[Hg] Siria Trinh NAPPER TENDER.CNM Work Phone: [facility] 12-11-2022 13:45-0400 Body weight 90.63 kg Aurora Prince MD Work Phone: [facility] 12-11-2022 13:45-0400 Diastolic blood pressure 76 mm[Hg] Aurora Prince MD Work Phone: [facility] 12-11-2022 13:45-0400 Systolic blood pressure 120 mm[Hg] Aurora Prince MD Work Phone: [facility] 10-16-2022 15:56-0400 Body weight 81.65 kg Parmjit Gonzalez MD Work Phone: [facility] 10-16-2022 15:56-0400 Diastolic blood pressure 68 mm[Hg] Parmjit Gonzalez MD Work Phone: [facility] 10-16-2022 15:56-0400 Systolic blood pressure 118 mm[Hg] Parmjit Gonzalez MD Work Phone: [facility] 09-18-2022 13:07-0400 Body height 188 cm Joanne Edgekalani NAPPER TENDER.CNM Work Phone: [facility] 09-18-2022 13:07-0400 Body weight 80.29 kg Joanne Edgekalani NAPPER TENDER.CNM Work Phone: [facility] 09-18-2022 13:07-0400 Diastolic blood pressure 72 mm[Hg] Joanne Plotts NAPPER TENDER.CNM Work Phone: [facility] 09-18-2022 13:07-040 Systolic blood pressure 122 mm[Hg] Joanne Miller NAPPER TENDER.CNM Work Phone: [facility] Encounters Encounter Date Encounter Type Care Provider Facility Start: 04-16-2023 End: 04-16-2023 ambulatory PARMJIT GONZALEZ Facility:[facility] Start: 04-16-2023 End: 04-16-2023 Patient encounter procedure Parmjit Gonzalez MD Work Phone: OB/Gynecology Procedures Date Procedure Procedure Detail Performing Clinician Start: 04-16-2023 URINE OB DIP B/O Parmjit Gonzalez MD Work Phone: Start: 04-09-2023 URINE OB DIP B/O Petty Miller NAPPER TENDER.CNM Work Phone: Start: 02-23-2023 URINE OB DIP B/O Dima Trinh NAPPER TENDER.CNM Work Phone: Start: 02-05-2023 URINE OB DIP B/O Dima Trinh NAPPER TENDER.CNM Work Phone: Start: 12-11-2022 URINE OB DIP B/O Auroar bryant MD Work Phone: Start: 12-11-2022 Us preg uterus after 1st trimest 1/ gestation Joanne Miller APRN.CNM Work Phone: Start: 10-16-2022 Antibody screen SIRIA TRINH Plan of Treatment Date Care Activity Detail Author Start: 09-18-2025 PAP TESTING PAP TESTING [facility] Start: 09-18-2025 Screening for malign ant neoplasm of cervix Pap Testing [facility] Start: 09-19-2023 CHLAMYDIA SCREENING (18-24) CHLAMYDIA SCREENING (18-24) [facility] Start: 09-19-2023 GC (GONORRHEA) SCREE ESMER (18-24) GC (GONORRHEA) SCREENING (18-24) [facility] Start: 09-19-2023 Screening for Chlamy nj trachomatis Chlamydia Screening (18-) [facility] Start: 03-08-2023 Depression Assessment Depression Ass essment [facility] Start: 03-06-2023 RSV Vaccine (1 - Ris k 1-dose series) RSV Vaccine (1 - Risk 1-dose series) [facility] Start: 11-06-2022 [facility] Start: 09-18-2022 End: 11-18-2022 CBC panel - Blood by Automated count CBC Lab Routine Encounter for care in first trimester of first 7 weeks gestation of Expected: 09/18/2022, Expires: 11/18/2022 [facility] Work Phone: Payers Date Payer Category Payer Unknown [employer] P[employer] [id number] 2022-Present [phone] [address] [place] [address] PPO [id number] 2022 Unknown [id number] 2000 Unknown [id number] 2000 Unknown [id number] Unknown [id number] Social History Date Type Detail Facility Start: 08-31-2022 [facility] Work Phone: End: 08-10-2018 History of tobacco use Current smoker [facility] Work Phone: End: 08-10-2018 History of tobacco use Cigarette Smoker [facility] Work Phone: Start: 08-31-2022 Tobacco use and exposure Smokeless tobacco non-user [facility] Work Phone: Start: 08-31-2022 End: 04-16-2023 Alcohol intake Ex-drinker (finding) [facility] Start: 08-31-2022 Education 13 [facility] Start: 08-31-2022 Alcohol Comment 1-2 times a month [facility] Start: 08-08-2022 [facility] Start: 2000 Sex Assigned At Not on file [facility] Start: 09-18-2022 End: 04-16-2023 History of Social function [facility] Start: 09-18-2022 End: 04-16-2023 Tobacco use panel [facility] Goals Date Patient Goal Desired Activity [...] Parmjit Gonzalez MD documented in this encounter [facility] 04-16-2023 Instructions Africa Maldonado Ma - 04/16/2023 1:27 PM EST SEQUENTIAL SCREENINGS The [facility] offers sequential screenings for women who [...] It will require an appointment with our tissue technician. This is not an ultrasound performed [...] the above symptoms, contact our office at [phone] and ask to speak with a nurse. After hours, you can call doctors registry at [phone] OR call [facility] at [phone] and ask to have the doctor transportation museum helper paged. If you consider this an emergency, dial 6-1-5 or go to your nearest emergency department. NEED HELP? Are you dealing with a violent or abusive relationship? Are you a victim of rape or sexual assult? Call [facility] ([place]) 24 hour Crisis Hotline: 845.255.8139 or 296-916-0314. MANUAL Your Guide to a Healthy manual is now on-line. Visit [email or web address] [email or web address] to download your free copy documented in this encounter [facility] 04-09-2023 Miscellaneous Notes Formattin g of [...] Joanne Miller APRN.CNM documented in this encounter [facility] 04-09-2023 Instructions Waylon Perez Cma - 04/09/2023 2:35 PM EST SEQUENTIAL SCREENINGS The [facility] offers sequential screenings for women who [...] It will require an appointment with our tissue technician. This is not an ultrasound performed [...] the above symptoms, contact our office at [phone] and ask to speak with a nurse. After hours, you can call doctors registry at [phone] OR call [facility] at [phone] and ask to have the doctor transportation museum helper paged. If you consider this an emergency, dial 9-1-1 or go to your nearest emergency department. NEED HELP? Are you dealing with a violent or abusive relationship? Are you a victim of rape or sexual assult? Call [facility] ([place]) 24 hour Crisis Hotline: 483.367.2748 or 440-596-3785. MANUAL Your Guide to a Healthy manual is now on-line. Visit [email or web address] [email or web address] to download your free copy documented in this encounter [facility] 02-23-2023 Miscellaneous Notes Formattin g of [...] Siria Trinh APRN.CNM documented in this encounter [facility] 02-23-2023 Instructions Waylon Perez Cma - 02/23/2023 3:05 PM EST SEQUENTIAL SCREENINGS The [facility] offers sequential screenings for women who [...] It will require an appointment with our tissue technician. This is not an ultrasound performed [...] the above symptoms, contact our office at [phone] and ask to speak with a nurse. After hours, you can call doctors registry at [phone] OR call [facility] at [phone] and ask to have the doctor transportation museum helper paged. If you consider this an emergency, dial 2-3-9 or go to your nearest emergency department. NEED HELP? Are you dealing with a violent or abusive relationship? Are you a victim of rape or sexual assult? Call [facility] ([place]) 24 hour Crisis Hotline: 943.118.9755 or 226-392-6503. MANUAL Your Guide to a Healthy manual is now on-line. 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 I have re-performed the HPI, Physical Examination, Assessment and Plan. Siria Trinh APRN.CNM documented in this encounter [facility] 02-05-2023 Instructions Melanie Lind Ma 02/05/2023 3:07 PM EST SEQUENTIAL SCREENINGS The [facility] offers sequential screenings for women who [...] It will require an appointment with our tissue technician. This is not an ultrasound performed [...] the above symptoms, contact our office at [phone] and ask to speak with a nurse. After hours, you can call doctors registry at [phone] OR call [facility] at [phone] and ask to have the doctor transportation museum helper paged. If you consider this an emergency, dial 9-1-1 or go to your nearest emergency department. NEED HELP? Are you dealing with a violent or abusive relationship? Are you a victim of rape or sexual assult? Call [facility] ([place]) 24 hour Crisis Hotline: 305.563.6577 or 794-994-3341. MANUAL Your Guide to a Healthy manual is now on-line. Visit [email or web address] gnancyGuide to download your free copy documented in this encounter [facility] 12-11-2022 Miscellaneous Notes Formattin g of this note might be different from the original. SW- No pain, vb, lof. No FM yet. Anatomy US today and final report reviewed. RTO 4 wks. Aurora Prince DO documented in this encounter [facility] 12-11-2022 Instructions Rosa Aguilar MA - 12/11/2022 1:36 PM EDT SEQUENTIAL SCREENINGS The [facility] offers sequential screenings for women who [...] It will require an appointment with our tissue technician. This is not an ultrasound performed [...] the above symptoms, contact our office at [phone] and ask to speak with a nurse. After hours, you can call doctors registry at [phone] OR call [facility] at [phone] and ask to have the doctor transportation museum helper paged. If you consider this an emergency, dial 2-0-9 or go to your nearest emergency department. NEED HELP? Are you dealing with a violent or abusive relationship? Are you a victim of rape or sexual assult? Call [facility] ([place]) 24 hour Crisis Hotline: 234.864.9496 or 150-259-4865. MANUAL Your Guide to a Healthy manual is now on-line. Visit [email or web address]/HealthyPre gnancyGuide to download your free copy documented in this encounter [facility] 10-16-2022 Miscellaneous Notes Formattin g of [...] Parmjit Gonzalez MD documented in this encounter [facility] 10-16-2022 Instructions Aurora Beatty RN - 10/16/2022 8:47 AM EDT SEQUENTIAL SCREENINGS The [facility] offers sequential screenings for women who [...] It will require an appointment with our tissue technician. This is not an ultrasound performed [...] the above symptoms, contact our office at [phone] and ask to speak with a nurse. After hours, you can call doctors registry at [phone] OR call [facility] at [phone] and ask to have the doctor transportation museum helper paged. If you consider this an emergency, dial 9-7 or go to your nearest emergency department. NEED HELP? Are you dealing with a violent or abusive relationship? Are you a victim of rape or sexual assult? Call [facility] ([place]) 24 hour Crisis Hotline: 929.268.9177 or 738-733-1839. MANUAL Your Guide to a Healthy manual is now on-line. Visit [email or web address] gnancyGuide to download your free copy documented in this encounter [facility] 09-18-2022 Note HNO ID: [id number] Author: Joanne Miller APRN.CNM Service: ? Author Type: Director Of Assessment Type: Progress Notes Filed: 09/18/2022 2:09 PM Note Text: OB point of care ultrasound was performed. See imaging tab for details. Joanne Miller APRN.CNM [facility] 09-18-2022 Note HNO ID: [id number] Author: Joanne Miller APRN.CNM Service: ? Author Type: Director Of Assessment Type: Progress Notes Filed: 09/18/2022 1:45 PM [...] use: No Multivitamin with Folic acid: Yes Orthodoxy or heritage: No Would refuse blood transfusion if medically necessary: No Are you currently employed? Yes, Occupation: [employer] Do you have any history of depression, [...] Status:Engaged Partner: Name: Luigi Age: 21 Occupation: [employer] Gender: Male History of STDs: None PAST [...] PELVIS: External gen (more content not included)... [facility] 09-18-2022 History of Presen t illness Narrative OB point of care ultrasound was performed. See imaging tab for details. Joanne Miller APRN.BHASKARM documented in this encounter [facility] 09-18-2022 Miscellaneous Notes Formattin g of this note might be different from the original. Patient seen for NOB. See progress note. Joanne Miller APRN.CNM documented in this encounter [facility] 09-18-2022 History of Presen t illness [...] use: No Multivitamin with Folic acid: Yes Orthodoxy or heritage: No Would refuse blood transfusion if medically necessary: No Are you currently employed? Yes, Occupation: [employer] Do you have any history of depression, [...] Your guide to a health and the [employer] Operator. Discussed aneuploidy and carrier screening. Regarding [...] up in 4 weeks or sooner prn. Joanne Miller APRN.CNM documented in this encounter [facility] 09-18-2022 Waylon Gupta Cma - 09/18/2022 12:52 PM EDT Please select the following link to access the [facility] Your Guide to a Healthy . [email or web address] documented in this encounter [facility] 08-31-2022 Miscellaneous Notes Formattin g of this note might be different from the original. 08/31/2022 Patient here with father of the baby. They are engaged to be . Entire visit was done with [employer]. Patient desires aneuploidy screening. Contact information for [facility] given to patient to check on insurance coverage. Patient considering genetic carrier screening testing. Contact information for [facility] given to patient to check on insurance coverage.Sarahy Faria RN documented in this encounter [facility] Diagnosis Encounter for care in first trimester of first - Primary 7 weeks gestation of state, incidental Pap smear for cervical cancer screening Screening for malignant neoplasm of the cervix [facility]* Diagnosis with uncertain dates in first trimester- Primary [facility] Diagnosis 11 weeks gestation of - Primary state, incidental Supervision of normal first , antepartum [facility] Diagnosis 19 weeks gestation of - Primary state, incidental Encounter for care in second trimester of first [facility] Diagnosis Encounter for anatomic survey- Primary Encounter for care in first trimester of first 19 weeks gestation of state, incidental [facility] Diagnosis 27 weeks gestation of - Primary state, incidental Encounter for supervision of normal first in second trimester Supervision of normal first History of asthma Personal history of other diseases of respiratory system Encounter for supervision of normal first in third trimester Supervision of normal first [facility] Diagnosis Encounter for supervision of normal first in third trimester- Primary Supervision of normal first 30 weeks gestation of state, incidental [facility] Diagnosis Encounter for supervision of normal first in third trimester- Primary Supervision of normal first Excessive weight gain in , third trimester 36 weeks gestation of state, incidental Macrosomia of fetus affecting management of mother in third trimester, single or unspecified fetus [facility] Diagnosis 37 weeks gestation of - Primary state, incidental documented in this encounter [facility] for referral (narrative)* Diagnostic Procedure Only (Routine) - Pending Review Specialty Diagnoses / Procedures Referred By Maureen gamble Referred To Contact [facility] Diagnoses Encounter for care in first trimester of first 7 weeks gestation of Procedures OBSTETRIC ULTRASOUND WHI US PREG UTERUS AFTER 1ST TRIMEST 1/ GESTATION Joanne Miller APRN.CNM [address] [place] [address] [facility] [address] [place] [address] Referral ID Status Reason Start Date Expiration Date Visits Requested Visits Authorized [id number] Pending Review Auto-Generat ed Referral 09/18/2022 09/18/2023 1 1 [facility] for referral (narrative)* Diagnostic Procedure Only (Routine) - Authorized Specialty Diagnoses / Procedures Referred By Maureen gamble Referred To [facility] Diagnoses 30 weeks gestation of Procedures OBSTETRIC ULTRASOUND WHI US PREG UTERUS AFTER 1ST TRIMEST GESTATION Siria Trinh APRN.CNM [address] [place] [address] [facility] [address] [place] [address] Referral ID Status Reason Start Date Expiration Date Visits Requested Visits Authorized [id number] Authorized Auto-Generat ed Referral 3 02/23/2024 5 1 [facility] Summary Purpose Family History No Family History Records FoundNo Family History Records FoundNo Family History Records Found Advance Directives No Advanced Directives Records FoundNo Advanced Directives Records FoundNo Advanced Directives Records Found Health Concerns Problem Noted Date Diagnosed Date [facility] - [facility] 09/18/2022 [place] - [place] 09/18/2022 Problem Noted Date Diagnosed Date [facility] - [facility] 09/18/2022 [place] - [place] 09/18/2022 Problem Noted Date Diagnosed Date [facility] - [facility] 09/18/2022 [place] - [place] 09/18/2022 Problem Noted Date Diagnosed Date [facility] - [facility] 09/18/2022 [place] - [place] 09/18/2022 Problem Noted Date Diagnosed Date [facility] - [facility] 09/18/2022 [place] - [place] 09/18/2022 Problem Noted Date Diagnosed Date [facility] - [facility] 09/18/2022 [place] - [place] 09/18/2022 Problem Noted Date Diagnosed Date [facility] - [facility] 09/18/2022 [place] - [place] 09/18/2022 Problem Noted Date Diagnosed Date [facility] - [facility] 09/18/2022 [place] - [place] 09/18/2022 Additional Source Comments INFORMATION SOURCE (unrecogn ized section and content) DATE CREATED AUTHOR AUTHOR'S ORGANIZ ATION 02/04/2020 [facility] DATE CREATED AUTHOR AUTHOR'S ORGANIZ ATION 04/18/2023 [facility] Source Comments (unrecognize d section and content) In the event this informatio n is protected by the Federal Confidentiality of Alcohol and Drug Abuse Patient Records regulations: The Federal rules restrict any use of the information to criminally investigate or prosecute any alcohol or drug abuse patient.[facility] the event this information is protected by the Federal Confidentiality of Alcohol and Drug Abuse Patient Records regulations: The Federal rules restrict any use of the information to criminally investigate or prosecute any alcohol or drug abuse patient.[facility] the event this information is protected by the Federal Confidentiality of Alcohol and Drug Abuse Patient Records regulations: The Federal rules restrict any use of the information to criminally investigate or prosecute any alcohol or drug abuse patient.[facility] the event this information is protected by the Federal Confidentiality of Alcohol and Drug Abuse Patient Records regulations: The Federal rules restrict any use of the information to criminally investigate or prosecute any alcohol or drug abuse patient.[facility] the event this information is protected by the Federal Confidentiality of Alcohol and Drug Abuse Patient Records regulations: The Federal rules restrict any use of the information to criminally investigate or prosecute any alcohol or drug abuse patient.[facility] the event this information is protected by the Federal Confidentiality of Alcohol and Drug Abuse Patient Records regulations: The Federal rules restrict any use of the information to criminally investigate or prosecute any alcohol or drug abuse patient.[facility] the event this information is protected by the Federal Confidentiality of Alcohol and Drug Abuse Patient Records regulations: The Federal rules restrict any use of the information to criminally investigate or prosecute any alcohol or drug abuse patient.[facility] the event this information is protected by the Federal Confidentiality of Alcohol and Drug Abuse Patient Records regulations: The Federal rules restrict any use of the information to criminally investigate or prosecute any alcohol or drug abuse patient.[facility] the event this information is protected by the Federal Confidentiality of Alcohol and Drug Abuse Patient Records regulations: The Federal rules restrict any use of the information to criminally investigate or prosecute any alcohol or drug abuse patient.[facility] the event this information is protected by the Federal Confidentiality of Alcohol and Drug Abuse Patient Records regulations: The Federal rules restrict any use of the information to criminally investigate or prosecute any alcohol or drug abuse patient.[facility] the event this information is protected by the Federal Confidentiality of Alcohol and Drug Abuse Patient Records regulations: The Federal rules restrict any use of the information to criminally investigate or prosecute any alcohol or drug abuse patient.[facility] Reason for Visit (unrecogniz ed section and content) Specialty Diagnoses / Procedures Referred By Contac t Referred To Contact [facility] CENTER ATTENDANT Diagnoses Follow-up examination PNOB Procedures OFFICE/OUTPATIENT ESTABLISHED MOD MDM 30-39 MIN [facility] NURSE Self Beac, Injection Nurse Operations Welder [facility] [address] [place] [address] Referral ID Status Reason Start Date Expiration Date Visits Re quested Visits Authorized [id number] Closed 08/31/2022 03/07/2023 1 1 Specialty Diagnoses / Procedures Referred By Contac t Referred To Contact FITNESS CENTER ATTENDANT Diagnoses Follow-up exam New OB Procedures OFFICE/OUTPATIENT NEW HIGH MDM 60-74 MINUTES NEW I OB 1ST EXAM Self Joanne Miller APRN.CNM [address] [place] [address] Referral ID Status Reason Start Date Expiration Date Visits Re quested Visits Authorized [id number] Closed 09/18/2022 03/07/2023 1 1 Specialty Diagnoses / Procedures Referred By Contac t Referred To Contact [facility] CENTER ATTENDANT Diagnoses READ Procedures US PREG UTERUS AFTER 1ST TRIMEST GESTATION OB ULTRASOUND POC Joanne Miller APRN.CNM [address] [place] [address] Joanne Miller APRN.BHASKARM [address] [place] [place] [address] Referral ID Status Reason Start Date Expiration Date Visits Re quested Visits Authorized [id number] Closed 09/18/2022 03/07/2023 1 1 Reason Onset Date Comments Care 10/16/2022 Specialty Diagnoses / Procedures Referred By Contac t Referred To Contact [facility] CENTER ATTENDANT Diagnoses Encounter for other specified special examinations ob Procedures OFFICE/OUTPATIENT ESTABLISHED MOD MDM 30-39 MIN EST [facility] OB Self Parmjit Gonzalez MD [address] [place] [place] [address] Referral ID Status Reason Start Date Expiration Date Visits Re quested Visits Authorized [id number] Closed 10/16/2022 03/07/2023 1 1 Reason Onset Date Comments Care 12/11/2022 Specialty Diagnoses / Procedures Referred By Contac t Referred To Contact [facility] CENTER ATTENDANT Diagnoses Follow-up examination ob Procedures OFFICE/OUTPATIENT ESTABLISHED HIGH MDM 40-54 MIN EST [facility] OB Self Aurora Prince MD [address] [place] [address] Referral ID Status Reason Start Date Expiration Date Visits Re quested Visits Authorized [id number] Closed 12/11/2022 03/07/2023 1 1 Reason Comments US Specialty Diagnoses / Procedures Referred By Contac t Referred To Contact [facility] Diagnoses Encounter for care in first trimester of first 7 weeks gestation of Procedures OBSTETRIC ULTRASOUND WHI US PREG UTERUS AFTER 1ST TRIMEST GESTATION Joanne Miller APRN.SHAN [address] [place] [place] [address] [facility] [address] [place] [address] Referral ID Status Reason Start Date Expiration Date Visits Requested Visits Authorized [id number] Authorized Auto-Generat ed Referral 11/25/2022 03/07/2023 20 [...] BE BASED ON THE PRIMARY CLINICAL RECORDS. [facility] [employer] provides no warranty or guarantee of the accuracy or completeness of information in this document.
[2023-04-19 10:24] LABS: Absolute Lymphocyte Count 1.34 X10^3/uL (0.83-4.51); Absolute Neutrophil Count 9.6 X10^3/uL (2.0-7.7); Basophil# 0.02 X10^3/uL; Basophil% 0.2 % (0-1); Eosinophil# 0.12 X10^3/uL; Hemoglobin 12.5 g/dL (12.0-15.0); Lymphocyte # 1.34 X10^3/ul (0.83-4.51); Lymphocyte % 11.2 % (19-41); Mean Corp Hgb Conc 32.9 g/dL (32-36); Mean Corpuscular Hgb 29.4 pg (27.0-32.0); Mean Corpuscular Volume 89.4 fL (81-99); Monocyte# 0.77 X10^3/uL; Monocyte% 6.4 % (0-10); NRBC Flagged by Analyzer 0 % (0-5); Neutrophil # 9.63 X10^3/uL (2.7-7.7); Neutrophil % 80.7 % (47-70); Platelet Count 274 K/mm3 (150-450); RBC Distribution Width CV 12.6 % (11.6-14.6); RBC Distribution Width SD 40.6 fl (35.1-43.9); Red Blood Count 4.25 M/mm3 (4.2-5.4); White Blood Count 11.9 K/mm3 (4.4-11.0)
[2023-04-19] MEDS: Acetaminophen 500 MG Tablet 1000 MG PO ×3 (10:48→23:28)
[2023-04-19 10:50] LABS: Syphilis Antibodies Non-reactive
[2023-04-19] MEDS: Lactated Ringers 1,000 ML 150 ML IV (11:26)
[2023-04-19] MEDS: Sodium Citrate/Citric Acid 30 ML UDC PO (13:12)
[2023-04-19] MEDS: Cefazolin 2 GM in 0.9% Normal Saline (100mL Bag) 100 ML IV (13:19)
--- NOTE | 2023-04-19 14:41 | OP.PCM_ITS ---
Problems Associated Problem List Diagnoses (1) 38 weeks gestation of : (2) SROM (spontaneous rupture of membranes): Report of Operation Date of Procedure: 04/19/23 Pre-Operative Diagnosis: 38 week gestation, SROM, accelerated growth Post-Operative Diagnosis: As above Surgery/Procedure Performed:: Primary LTCS Description of Surgical Findings:: VMI in cephalic presentation. Weight 3800 g. Loose nuchal cord x 2. Normal appearing uterus and bilateral adnexa. Surgeon: Cindy Prince kosher dietary service manager: Chas VAN Type of Anesthesia: Spinal Special Medications: None Specimen's removed: Placenta Drains: Granado Estimated Blood Loss (mL): 500 Fluids Replaced: 1000 mL Description of Procedure: The patient was taken to the operating room where spinal anesthesia was found to be adequate. She was prepped and draped in the dorsal supine position with a leftward tilt. A Pfannenstiel skin incision was made with a scalpel and this was carried down to the underlying layer of fascia. The fascia was incised in midline. The fascia was extended laterally using Quigley scissors. The fascia was dissected in a cephalad direction off the rectus muscles to identify the midline of the rectus muscles. The rectus muscles were then in the midline. The peritoneum was entered with a combination of sharp and blunt dissection with good visualization of the bladder. The peritoneal incision was extended bluntly with lateral traction. A bladder blade was inserted. A low transverse incision was made on the uterus with a scalpel. The uterine incision was extended with cephalad and caudad traction. The head was flexed and delivered through the hysterotomy, followed by the shoulders and body of the without any traction, force, or delay. A vigorous viable male infant was delivered. The cord was clamped and cut after slight delay. The was handed off to the awaiting nursery staff. The placenta was removed with manual extraction. The uterus was cleared of all clot debris. Uterus was exteriorized. 1-0 Vicryl was used to close the hysterotomy in a running locked fashion. A second imbricating layer was performed. Several additional [id number]-fkanu sutures were placed to achieve hemostasis. Bilateral adnexa were normal-appearing. The uterus was placed back into the abdomen. Gutters were cleared. Nisa was placed over the hysterotomy and lower uterine segment. The peritoneum was closed with 3-0 Vicryl in a running fashion. The subfascial space was noted to be hemostatic. The fascia was closed with strata fix in a running fashion. The subcutaneous space was irrigated and noted to be hemostatic. The subcutaneous space was reapproximated using 3-0 Vicryl. 4 Monocryl was used to close the skin in a subcuticular fashion. A bandage was placed. Instrument, sponge, needle counts were correct. The patient was taken to recovery in stable condition. Chas VAN was present for the entire case and assisted with draping the patient, delivery of the infant, and closure. Grafts/Implants Used: None Procedure Start Time: 13:47 Procedure Stop Time: 14:51 Complications None Admit VTE Documentation VTE Present on Admission: No VTE Mechan Device Prophylaxis: SCD's
--- NOTE | 2023-04-19 14:44 | HP.PCM.OB_ITS ---
HPI - General General Date of Admission: 04/19/23 Date of Service: 04/19/23 Chief Complaint: SROM HPI Narrative WAYLON LEVY, is a 23 F who presents from the office with SROM around 2 am. No ctx, vb. Good FM. She offers no complaints. She was evaluated in the office this morning and confirmed to be ruptured. [facility] Medical History (Updated 04/19/23 @ 18:[address] Cindy Prince, DO) Asthma macrosomia Home Medications vit 115-iron fum 29 mg iron-folic acid 1 mg-dss 25 mg tablet tab pr egnancy 04/19/23 [History Last Taken Unknown] Allergy/AdvReac Type Severity Reaction Status Date / Time peanut Allergy Vomiting Verified 04/19/23 10:23 Social History Smoking Status: Never smoker History Elective abortions Hx Para 0 Spontaneous abortions Hx # Term Pregnancies Ectopic pregnancies Hx # Pregnancies Multiple births # of living children Vital Signs Vital Signs Vital Signs: 04/19/23 10:01 04/19/23 09:59 04/19/23 09:59 Temperature 99.0 F Temperature Source Oral Pulse Rate 116 H 120 H Respiratory Rate 16 Blood Pressure 133/63 H 156/87 H Blood Pressure Mean 86 BP Systolic 156 BP Diastolic 87 Blood Pressure Source Monitor Blood Pressure Position Semi-Fowlers Blood Pressure Location Right Arm Pulse Ox 94 Oxygen Delivery Method Room Air 04/19/23 09:59 04/19/23 10:15 04/19/23 10:15 Temperature Temperature Source Pulse Rate 108 H Respiratory Rate Blood Pressure 161/83 H Blood Pressure Mean BP Systolic 161 BP Diastolic 83 Blood Pressure Source Blood Pressure Position Blood Pressure Location Pulse Ox 95 Oxygen Delivery Method 04/19/23 10:16 04/19/23 10:16 Temperature Temperature Source Pulse Rate 102 H Respiratory Rate Blood Pressure 133/63 H Blood Pressure Mean BP Systolic 133 BP Diastolic 63 Blood Pressure Source Blood Pressure Position Blood Pressure Location Pulse Ox Oxygen Delivery Method Weight Weight: 249 lb 3.2 oz Body Mass Index (BMI) 32.0 Physical Exam Const alert and no apparent distress General Appearance: comfortable Resp normal respiratory effort GI soft to palpation, non-tender and non-distended Labs Labs Labs: Blood Type O POSITIVE Antibody Screen NEGATIVE Hct 38.0 % (37-47) Hgb 12.5 g/dL (12.0-15.0) Syphilis Total Ab Non-reactive Assessment & Plan (1) 38 weeks gestation of : PLAN: Admit for primary section per request of the patient. Ancef pre op. Discussed r/b/a to a section. Discussed option for trying for a vaginal delivery. Patient understands risks with surgery. She also understands limitations with a growth ultrasound. Questions were answered to her satisfaction and she feels well counseled. She signed consent and requests to proceed with a section. (2) SROM (spontaneous rupture of membranes): PLAN: Confirmed ruptured in the office. (3) Excessive growth: PLAN: 04/12/23 EFW 98% with AC> 99%. Discussed with patient limitations of a growth US.
[2023-04-19] MEDS: Oxytocin 15 Units/NS 250ml 15 UNITS/250 ML IV.SOLN 83 UNITS IV (15:15)
[2023-04-19] MEDS: Ketorolac 30 MG/ML Syringe IV ×2 (15:51→21:23)
[2023-04-19] MEDS: Lactated Ringers 1,000 ML 100 ML IV (18:20)
[2023-04-20 01:14] VITALS: RESP 16; O2SAT 98
[2023-04-20] MEDS: Ketorolac 30 MG/ML Syringe IV ×2 (03:47→10:12)
[2023-04-20] MEDS: 0.9% Saline Lock 10 ML Syringe IV ×2 (03:48→10:12)
[2023-04-20 04:00] VITALS: BP 134/88; PULSE 106; RESP 16; TEMP 36.3; O2SAT 99
[2023-04-20] MEDS: Acetaminophen 500 MG Tablet 1000 MG PO ×4 (05:21→23:54)
[2023-04-20 05:33] LABS: Hematocrit 31.2 % (37-47); Hemoglobin 10.5 g/dL (12.0-15.0); Mean Corp Hgb Conc 33.7 g/dL (32-36); Mean Corpuscular Hgb 30.3 pg (27.0-32.0); Mean Corpuscular Volume 89.9 fL (81-99); Mean Platelet Vol. 8.7 fl (6.2-12.0); Platelet Count 255 K/mm3 (150-450); RBC Distribution Width CV 12.7 % (11.6-14.6); RBC Distribution Width SD 40.9 fl (35.1-43.9); Red Blood Count 3.47 M/mm3 (4.2-5.4); White Blood Count 15.6 K/mm3 (4.4-11.0)
[2023-04-20 08:15] VITALS: BP 131/79; PULSE 100; RESP 18; TEMP 36.7; O2SAT 100
[2023-04-20] MEDS: Senna/Docusate Sodium 1 Tablet PO (10:12)
--- NOTE | 2023-04-20 11:17 | PCM.PN.OB ---
Subjective Subjective pain well controlled, average lochia Objective Data Objective Data Vital Signs: Vital Signs Temp Pulse Resp BP Pulse Ox O2 Del Method 98.1 F 100 18 131/79 H 100 Room Air 04/20/23 08:15 04/20/23 08:15 04/20/23 08:15 04/20/23 08:15 04/20/23 08:15 04/20/23 08:15 Oxygen Delivery Method Room Air Weight: 113.035 kg Body Mass Index (BMI) 32.0 Intake & Output: Intake and Output for Last 24 Hours 04/18/23 04/19/23 04/20/23 23:59 23:59 23:59 Intake Total 2040.83 / 2040.83 0 / 0 Output Total 1000 / 1000 300 / 300 Balance 1040.83 / 1040.83 -300 / -300 Lab / Micro Data 04/20/23 05:30 Labs: Laboratory Results - last 24 hr 04/19/23 10:05: Blood Type O POSITIVE, Antibody Screen NEGATIVE 04/20/23 05:30: WBC 15.6 H, RBC 3.47 L, Hgb 10.5 L, Hct 31.2 L, MCV 89.9, MCH 30.3, MCHC 33.7, RDW Std Deviation 40.9, RDW Coeff of Elvia 12.7, Plt Count 255, MPV 8.7 Physical Exam Const alert General Appearance: cooperative GI GI Narrative: soft, moderate distention, fundus firm, appropriately tender. Abdominal bandage clean dry and intact Assessment & Plan (1) delivery delivered: PLAN: POD#1 s/p elective c/s. Doing well. Mild acute blood loss anemia, appropriagte for blood loss during surgery. doing well Routine care. likely home tomorrow. I spend 11 min rounding and charting on patient today
[2023-04-20 13:40] VITALS: BP 109/70; PULSE 94; RESP 18; TEMP 36.9; O2SAT 99
[2023-04-20] MEDS: Ibuprofen 600 MG Tablet PO ×2 (15:58→21:49)
[2023-04-20 20:16] VITALS: BP 116/73; PULSE 94; RESP 16; TEMP 36.5; O2SAT 99
[2023-04-20 23:55] VITALS: BP 120/69; PULSE 89; RESP 16; TEMP 36.4; O2SAT 99
[2023-04-21] MEDS: Ibuprofen 600 MG Tablet PO ×2 (04:21→10:04)
[2023-04-21 04:22] VITALS: BP 126/86; PULSE 92; RESP 16; TEMP 36.2; O2SAT 98
[2023-04-21] MEDS: Acetaminophen 500 MG Tablet 1000 MG PO (05:58)
--- NOTE | 2023-04-21 08:26 | DS.PCM_ITS ---
Providers Date of Admission: 04/19/23 Date of Discharge: 04/21/23 Reason For Visit: PRIMARY Diagnosis Discharge Diagnosis (1) delivery delivered: Status: Acute Code(s): O82 - Encounter for delivery without indication (2) Excessive growth: Status: Acute (3) SROM (spontaneous rupture of membranes): Status: Acute (4) 38 weeks gestation of : Status: Acute Code(s): Z3A.38 - 38 weeks gestation of Medications at Discharge Home Medications vit 115-iron fum 29 mg iron-folic acid 1 mg-dss 25 mg tablet tab pregn falguni 04/19/23 acetaminophen 500 mg tablet 1,000 mg (2 x 500 mg) PO Q6H #0 tabs 04/21/23 ibuprofen 600 mg tablet 600 mg PO Q6H #0 tabs 04/21/23 sennosides 8.6 mg-docusate sodium 50 mg tablet (Stool Softener-Stimulant Laxative) 1 - 2 tab PO DAILY #0 tabs 04/21/23 simethicone 80 mg chewable tablet 80 mg PO PCHS PRN Indigestion/stomach pain #0 tabs 04/21/23 Hospital Course Operations section Summary of Care Provided Minutes Spent on Discharge: 15 Hospital Course: pt admitted at 38+ weeks gestation with SROM- pt with previous ultrasound showing excessive growth and patient opted for elective primary cs. Pt underwent primary cs performed by Dr. Cindy Prince without complication. PT was discharged home in stable condition on POD#2. Physical Exam Narrative fundus firm. Dressing dry and intact. Const alert and oriented x3 General Appearance: cooperative HEENT normocephalic Neck General: normal visual inspection GI soft to palpation and non-distended GI Narrative: Fundus firm Extremity normal to inspection and no calf tenderness Skin no rashes or lesions noted Neuro oriented x3 and CN's II-XII intact bilaterally Psych mental status grossly normal Weight / BMI Weight Weight: 113.035 kg Body Mass Index (BMI) 32.0 ABG / Lab / Microbiology Data 04/20/23 05:30 D/C Instructions Discharge Diet: No restrictions May resume sexual activity in: 6-8 weeks Lifting Restrictions: 25 Call your doctor if your incision/area has: Continuous Slow Oozing, Sudden Increased Bleeding, Increased Pain/ Swelling, Increased Redness, Foul Smelling Discharge and Swelling at the incision site Call your doctor if you observe: Fever of 101 or Higher, Inability to urinate, Using more than 1 pad per hour and Uncontrolled pain Additional Dressing/Incision Instructions: remove dressing at 7 days post op- if it becomes saturated prior to that time you may remove it. Let soap and water run over incision sites and dab dry. keep incision clean and dry. Please Follow Up With: Ingrid Hyatt MD When: 1-2 weeks post of incision check and again at 6 weeks post . [phone] Meaningful Use Info Meaningful Use Diagnoses (Choose all that apply): None applicable Discharge Plan Admission Admit Date/Time: 04/19/23 09:25 Attending Provider: Cindy Prince Discharge Orders/Prescriptions Prescriptions: New acetaminophen 500 mg Tablet 1,000 mg PO Q6H Qty: 0 0RF sennosides-docusate sodium [Stool Softener-Stimulant Laxat] 8.6-50 mg Tablet 1 - 2 tab PO DAILY Qty: 0 0RF ibuprofen 600 mg Tablet 600 mg PO Q6H Qty: 0 0RF simethicone 80 mg Tablet,Chewable 80 mg PO PCHS PRN (Reason: Indigestion/stomach pain) Qty: 0 0RF Continued prenat 115-iron [id number] 29 mg iron- 1 mg-25 mg tablet Disposition Disposition (needs filled in before D/C Order can be placed): Home, Self Care
[2023-04-21 08:53] VITALS: BP 129/81; PULSE 91; RESP 16; TEMP 36.4
[2023-04-21] MEDS: Senna/Docusate Sodium 1 Tablet PO (10:04)
[2023-04-21] MEDS: MEASLES,MUMPS,RUBELLA VACC/PF 0.5 ML SC (11:19)
== END 2023-04-21 12:04 | disposition home or self-care (01) | DRG 788 ==
PROVIDERS: Admitting Provider Obstetrics & Gynecology; Visit Provider Obstetrics & Gynecology
DX: O36.63X0 Maternal care for excessive fetal growth, third trimester, not applicable or unspecified (principal); O42.02 Full-term premature rupture of membranes, onset of labor within 24 hours of rupture; O69.81X0 Labor and delivery complicated by cord around neck, without compression, not applicable or unspecified; Z37.0 Single live birth; Z3A.38 38 weeks gestation of pregnancy
CPT/HCPCS: 59025; 59050; 85025; 85027; 86780; 86850; 86900; 86901; 99221; J7120; A4216; G0378

== ENCOUNTER 2024-12-14 20:20 | Emergency (ER) | payer OTHER, SELFPAY ==
[2024-12-14 20:21] VITALS: BP 113/81; PULSE 87; RESP 20; TEMP 36.8; O2SAT 95; BMI 24.9
[2024-12-14 21:40] LABS: Color, Urine Yellow (Yellow); Glucose, Dipstick Normal (Normal); Ketone-Dipstick 15 mg/dl (Negative); Leukocyte Esterase-Dipstick 25 /ul (Negative); Nitrite-Dipstick Positive (Negative); Occult Blood-Urine 250 /ul (Negative); Protein-Dipstick 500 mg/dl (Negative); Specific Gravity, Urine 1.025 (1.002-1.030)
[2024-12-14 21:43] LABS: Internal QC Validated? YES +Cl - CLEAR BKGD; Pregnancy, Serum, hCG Quali. NEGATIVE Negative; Record Kit Lot#, Serum Preg. 980607
[2024-12-14 21:44] LABS: Urine Bilirubin Dipstick 1 mg/dL (Negative)
[2024-12-14 21:56] LABS: Hematocrit 44.4 % (37-47); Hemoglobin 15.2 g/dL (12.0-15.0); Immature Granulocytes Count 0.060 X10^3/uL (0.0-0.0); Mean Corp Hgb Conc 34.2 g/dL (32-36); Mean Corpuscular Volume 86.4 fL (81-99); Mean Platelet Vol. 10.1 fl (6.2-12.0); NRBC Flagged by Analyzer 0 % (0-5); POSITIVE DIFFERENTIAL YES; Platelet Count 320 K/mm3 (150-450); RBC Distribution Width CV 13.8 % (11.6-14.6); RBC Distribution Width SD 43.8 fl (35.1-43.9); Red Blood Count 5.14 M/mm3 (4.2-5.4); White Blood Count 16.3 K/mm3 (4.4-11.0)
[2024-12-14 22:01] LABS: AST(SGOT) 35 U/L (<=31); Alanine Aminotransfer ALT/SGPT 19 U/L (<=34); Albumin, Serum 4.4 g/dL (3.5-5.0); Alkaline Phosphatase 84 U/L (35-104); Anion Gap 15 (5-15); BUN 8 mg/dL (4-19); BUN/Creat Ratio 9.7 RATIO (10-20); Calcium,Total 9.4 mg/dL (7.6-11.0); Carbon Dioxide 19.2 mmol/L (21.0-32.0); Chloride 107 mmol/L (98-108); Estimated Creatinine Clearance 134.69 ml/min (50-250); Globulin 3.1 g/dL (2.2-4.2); Glucose 127 mg/dL (70-99); Lipase 16 U/L (13-75); Potassium 3.6 mmol/L (3.3-5.1)
[2024-12-14 22:21] VITALS: BP 137/73; PULSE 109; RESP 20; O2SAT 97
[2024-12-14 22:38] LABS: Mucous, Urine 1+ /hpf (<or=2+); Red Blood Cells-Urine 0-5 SEEN /hpf (0-5); Squamous Epithelial Cells - UA 10-25 SEEN /hpf (5-10)
[2024-12-14 22:54] VITALS: PULSE 98; RESP 16
[2024-12-14] MEDS: 0.9% Normal Saline (1000mL) 1,000 ML 999 ML IV (23:01)
--- NOTE | 2024-12-14 23:49 | EX.ED.DYSGE1 ---
HPI History of Present Illness Chief Complaint: Nausea/Vomiting/Diarrhea Informant: patient and spouse/S.O. Narrative Narrative: Patient is a 24-year-old female with past medical history of asthma. She states that today she has developed generalized abdominal discomfort with bouts of nausea vomiting and diarrhea. She denies any known sick contacts. She states there is been no blood or discoloration to either the stool or emesis. She reports that she cannot keep food or fluid down and also feels that the stomach illness is worsening her asthma. She states she has not required intubation or admission for asthma in the past but with the multitude of worsening symptoms presents for evaluation [facility] Medical History (Updated 12/14/24 @ 23:[address] Roddy Cazares, DO) macrosomia Asthma Home Medications ?Medication ?Instructions ?Recorded ?Last Taken ?Type albuterol sulfate 90 mcg/actuation 2 puff inhalation Q4H PRN PRN 12/14/24 Unknown Rx aerosol inhaler (Ventolin HFA) Wheezing/SOB #1 device hydrocodone-acetaminophen 5-325mg 1 tab PO Q6H PRN pain 3 days #12 12/14/24 Unknown Rx 5mg-325mg tabs ondansetron 4 mg disintegrating 4 mg PO TID PRN nausea and 12/14/24 Unknown Rx tablet vomiting #21 tabs prednisone 20 mg tablet 40 mg (2 x 20 mg) PO DAILY 5 days 12/14/24 Unknown Rx #10 tabs Allergy/AdvReac Type Severity Reaction Status Date / Time peanut Allergy Vomiting Verified 12/14/24 20:23 Social History Smoking Status: Never smoker [facility] ED Constitutional Constitutional ED: Denies chills or fever(s) Eyes Eyes: Denies blurry vision or change in vision ENT ENT ED: Denies sore throat Cardiovascular Cardiovascular: Denies chest pain Respiratory/Chest Respiratory/Chest: Reports cough and dyspnea Gastrointestinal Gastrointestinal: Reports abdominal pain, diarrhea, nausea and vomiting; Denies melena Genitourinary Genitourinary ED: Denies dysuria Musculoskeletal Musculoskeletal: Reports myalgias Integumentary Denies rash Neurologic Neurologic: Denies headache(s), paresthesias or weakness Hematologic/Lymphatic Hematologic/Lymphatic: Denies easy bleeding or easy bruising EXAM Physical Exam Const Vital Signs: 12/14/24 20:21 12/14/24 22:21 12/14/24 22:54 Temperature 98.2 F Temperature Source Oral Pulse Rate 87 109 H 98 Respiratory Rate 20 H 20 H 16 Respiratory Pattern Normal Blood Pressure 113/81 H 137/73 H Blood Pressure Mean 91 94 Pulse Ox 95 97 Oxygen Delivery Method Room Air Room Air Positive well nourished and well developed General Appearance ED: well developed; Negative for pallor HEENT HEENT Narrative: Normocephalic atraumatic No tongue or lip swelling no oral lesions no airway edema or compromise No signs of infection noted in the posterior pharynx Mucous membranes are slightly dry and tacky Eyes PERRL and EOMs intact bilaterally General Eye ED: Negative for scleral icterus Neck supple Chest Wall palpation of chest normal Resp Resp Narrative: Patient is slightly tachypneic. Breath sounds are diminished throughout with diffuse expiratory wheeze. No nasal flaring retractions or accessory muscle use Cardio regular rate and regular rhythm Rate: other Other Details: Radial and carotid pulses are equal and symmetric GI non-distended and no masses GI Narrative: Abdomen is soft and nondistended with hyperactive bowel sounds. There is mild diffuse pain with palpation. No voluntary guarding or rigidity or pulsatile mass. No peritoneal signs Auscultation: hyperactive bowel sounds Palpation: soft Back/Spine no CVA tenderness Extremity normal to inspection Extremity Narrative: No asymmetric edema no pitting edema negative Homans' sign bilaterally Neuro oriented x3, CN's II-XII intact bilaterally and no sensory deficits noted Sensorium / Orientation: alert Motor Exam: strength 5/5 throughout Psych mental status grossly normal Skin no rashes or lesions noted and no wounds General Skin Exam: Negative for jaundice or pallor MDM MDM MDM Narrative Medical decision making narrative: Patient arrived to the ER with stable vitals and a soft nonsurgical abdomen. History and exam is most consistent with viral stomach infection such as norovirus versus rotavirus. However in order to assess for potentially other infectious process such as biliary colic/acute cholecystitis pancreatitis or colitis I did elect to perform basic laboratory studies. With her findings of dehydration there was also concern for acute kidney injury versus electrolyte abnormality or complication. Workup revealed a leukocytosis of 16.3 with elevated neutrophil count but based on her exam and history I feel this is stress response. Otherwise she did not have signs of acute kidney injury or electrolyte abnormality. Lipase is normal going against pancreatitis and liver enzymes are normal going against a biliary issue. test is negative going against complication. After receiving IV fluids as well as Zofran and morphine in the ER she had resolution of symptoms and reported feeling much better. The urine is nitrite positive but I feel this is related to the blood present in it from her menstrual cycle and as there is no white blood cells and only rare bacteria with contamination with squamous cells I do not feel the need to treat her for UTI either as this is most likely contamination. After receiving steroids and breathing treatment she also had improvement of her breath sounds and was not in respiratory distress or hypoxic. Therefore at this time with improvement of symptoms stabilization of vitals and overall negative workup I do not feel the need for further intervention such as a CT scan and she is otherwise safe for discharge with symptomatic care History & Record Review Discussion w/independent historian: Patient and Significant other Lab Data Attestation: I reviewed the patient's lab results. Labs: Laboratory Results - last 24 hr 12/14/24 12/14/24 20:50 21:00 WBC 16.3 H RBC 5.14 Hgb 15.2 H Hct 44.4 MCV 86.4 MCH 29.6 MCHC 34.2 RDW Std Deviation 43.8 RDW Coeff of Elvia 13.8 Plt Count 320 MPV 10.1 Immature Gran % (Auto) 0.400 Neut % (Auto) 92.1 H Lymph % (Auto) 3.4 L [place] % (Auto) 3.8 Eos % (Auto) 0.1 Baso % (Auto) 0.2 Absolute Neuts (auto) 15.0 H Absolute Lymphs (auto) 0.55 L Nucleated RBC % 0 Sodium 142 Potassium 3.6 Chloride 107 Carbon Dioxide 19.2 L Anion Gap 15 BUN 8 Creatinine 0.79 Estim Creat Clear Calc 134.69 Est GFR (MDRD) Non-Af 108 BUN/Creatinine Ratio 9.7 L Glucose 127 H Calcium 9.4 Total Bilirubin 0.75 AST 35 H ALT 19 Alkaline Phosphatase 84 Total Protein 7.5 Albumin 4.4 Globulin 3.1 Albumin/Globulin Ratio 1.4 Lipase 16 Serum , Qual NEGATIVE Urine Color Yellow Urine Clarity Cloudy Urine pH 5.0 Ur Specific [place] 1.025 Urine Protein 500 H Urine Glucose (UA) Normal Urine Ketones 15 H Urine Occult Blood 250 H Urine Nitrite Positive H Urine Bilirubin 1 H Urine Urobilinogen 1 H Ur Leukocyte Esterase 25 H Urine RBC 0-5 SEEN Urine WBC 0-5 SEEN Ur Squamous Epith Cells 10-25 SEEN Urine Bacteria RARE Urine Mucus 1+ Discharge Plan Triage Chief Complaint: Nausea/Vomiting/Diarrhea ED Provider: Roddy Cazares Dx/Rx/DC Orders Clinical Impression: Nausea vomiting and diarrhea, Dehydration, Asthma exacerbation Instructions: ED Dehydration (Adult), ED Gastroenteritis, Viral (Adult) Prescriptions: New albuterol sulfate [Ventolin HFA] 90 mcg/actuation HFA aerosol inhaler 2 puff inhalation Q4H PRN PRN (Reason: Wheezing/SOB) Qty: 1 2RF prednisone 20 mg tablet 40 mg PO DAILY 5 Days Qty: 10 0RF ondansetron 4 mg tablet,disintegrating 4 mg PO TID PRN (Reason: nausea and vomiting) Qty: 21 0RF hydrocodone-acetaminophen 5-325 mg tablet 1 tab PO Q6H PRN (Reason: pain) 3 Days Qty: 12 0RF Primary Care Provider: Care Physician,No Primary Referrals: Care Physician,No Primary [Primary Care Provider, Medical] Activity Restrictions/Additional Instructions: Your history exam and workup is consistent with a viral stomach infection. This will resolve spontaneously and will last anywhere from 1 to 7 days with the average being 3 days. Keep yourself well-hydrated and use the medication as directed for symptom control. Return to the ER should you have any further concerns Print Language: Uzbek Disposition Disposition: Home, Self Care Discharge Date/Time: 12/15/24 00:45
[2024-12-15] MEDS: Albuterol Sulfate 8 gm Inhaler (60 puffs) 2 PUFF INHALATION (00:42)
[2024-12-15 00:44] VITALS: BP 112/85; PULSE 97; RESP 18; TEMP 36.8; O2SAT 97
== END 2024-12-15 00:45 | disposition home or self-care (01) ==
PROVIDERS: Emergency Provider Emergency Medicine; Visit Provider Emergency Medicine
DX: R11.2 Nausea with vomiting, unspecified (principal); R19.7 Diarrhea, unspecified; E86.0 Dehydration; J45.901 Unspecified asthma with (acute) exacerbation
CPT/HCPCS: 80053; 81001; 83690; 84703; 85025; 94640; 96361; 96374; 96375; 99282; A4216; J2405